=== PATIENT | female | born 1960 | race Caucasian/White ===

== ENCOUNTER 2020-06-30 11:41 | Outpatient (REF) | payer OTHER, SELFPAY ==
[2020-06-30 14:02] LABS: Hematocrit 39.2 % (37-47); Hemoglobin 12.7 g/dl (12.0-16.0); Mean Corpuscular HGB Conc 32.4 g/dl (31.0-35.0); Mean Corpuscular Hemoglobin 32.2 pg (27.0-33.0); Mean Corpuscular Volume 99.5 fL (80-98); Mean Platelet Volume 10.5 fL (9.4-12.3); Platelet Count 193 X10*3/uL (160-400); Red Blood Count 3.94 X10*6/uL (4.20-5.50); Red Cell Distribution Width 15.1 % (11.0-16.0); White Blood Count 13.4 X10*3/uL (4.8-10.8)
[2020-06-30 14:46] LABS: Alanine Aminotransferase 25 U/L (0-31); Albumin Level 4.1 g/dL (3.5-5.0); Alkaline Phosphatase 95 U/L (39-117); Anion Gap 14 (12-20); Aspartate Amino Transferase 47 U/L (5-31); Bilirubin Total 0.7 mg/dL (0.0-1.0); Blood Urea Nitrogen 14 mg/dL (9-16); Calcium 9.3 mg/dL (8.4-10.2); Carbon Dioxide 28 mmol/L (22-29); Chloride 101 mmol/L (96-108); Estimated Glomerular Filt Rate > 60; Glucose Random 90 mg/dL (60-115); Magnesium 1.4 mg/dL (1.6-2.6); Potassium 3.7 mmol/L (3.3-5.1); Sodium 139 mmol/L (135-145)
[2020-06-30 15:01] LABS: TSH reflex Free T4 2.99 uIU/mL (0.32-4.0)
[2020-06-30 15:09] LABS: Folate > 20.0 ng/mL (> or = 4.0); Vitamin B12 584 pg/mL (200-900)
== END 2020-06-30 11:42 | disposition home or self-care (01) ==
LOC: HO.HMGCLDS 11:41
PROVIDERS: PCP Internal Medicine; Visit Provider Internal Medicine
DX: Z01.818 Encounter for other preprocedural examination (principal); E03.9 Hypothyroidism, unspecified; E53.8 Deficiency of other specified B group vitamins
CPT/HCPCS: 36415; 80053; 82607; 82746; 83735; 84443; 85027

== ENCOUNTER 2020-10-07 10:50 | Outpatient (REF) | payer OTHER, SELFPAY ==
[2020-10-07 14:24] LABS: Hematocrit 36.7 % (37-47); Hemoglobin 11.8 g/dl (12.0-16.0); Mean Corpuscular HGB Conc 32.2 g/dl (31.0-35.0); Mean Corpuscular Hemoglobin 30.6 pg (27.0-33.0); Mean Corpuscular Volume 95.3 fL (80-98); Mean Platelet Volume 10.3 fL (9.4-12.3); Platelet Count 162 X10*3/uL (160-400); Red Blood Count 3.85 X10*6/uL (4.20-5.50); Red Cell Distribution Width 15.6 % (11.0-16.0); White Blood Count 8.1 X10*3/uL (4.8-10.8)
[2020-10-07 14:26] LABS: Glucose Urine UA NEG (NEG); Leukocyte Esterase Urine 1+ (NEG); Nitrite Urine NEG (NEG); Urine Blood NEG (NEG); Urine Ketones NEG (NEG); Urine Protein NEG (NEG-TRACE)
[2020-10-07 14:29] LABS: Appearance Urine HAZY; Color Urine YELLOW
[2020-10-07 14:41] LABS: Squamous Epithelial Cell Urine 3+ /LPF
[2020-10-07 15:12] LABS: Alanine Aminotransferase 41 U/L (0-31); Albumin Level 3.9 g/dL (3.5-5.0); Alkaline Phosphatase 72 U/L (39-117); Anion Gap 13 (12-20); Aspartate Amino Transferase 54 U/L (5-31); Bilirubin Total 0.5 mg/dL (0.0-1.0); Blood Urea Nitrogen 15 mg/dL (9-16); Carbon Dioxide 28 mmol/L (22-29); Chloride 102 mmol/L (96-108); Cholesterol 206 mg/dL; Estimated Glomerular Filt Rate > 60; Glucose Fasting 95 mg/dL (60-99); HDL Cholesterol 60 mg/dL; LDL Cholesterol Calculated 127 mg/dl; Magnesium 1.3 mg/dL (1.6-2.6); Sodium 139 mmol/L (135-145); Total Protein 7.3 g/dL (6.5-8.0); Triglycerides 99 mg/dL
[2020-10-07 15:22] LABS: TSH reflex Free T4 2.91 uIU/mL (0.32-4.0)
[2020-10-07 16:09] LABS: Folate 15.2 ng/mL (> or = 4.0); Vitamin B12 500 pg/mL (200-900)
== END 2020-10-07 10:51 | disposition home or self-care (01) ==
LOC: HO.HMGCLDS 10:50
PROVIDERS: PCP Internal Medicine; Visit Provider Internal Medicine
DX: Z00.00 Encounter for general adult medical examination without abnormal findings (principal); E03.9 Hypothyroidism, unspecified; E83.42 Hypomagnesemia; I49.8 Other specified cardiac arrhythmias
CPT/HCPCS: 36415; 80053; 80061; 81001; 82607; 82746; 83735; 84443; 85027; U0005

== ENCOUNTER 2020-10-20 15:00 | Outpatient (REF) | payer OTHER, SELFPAY ==
[2020-10-20 16:56] LABS: Glucose Urine UA NEG (NEG); Leukocyte Esterase Urine 1+ (NEG); Nitrite Urine NEG (NEG); Urine Blood 1+ (NEG); Urine Ketones NEG (NEG); Urine Protein NEG (NEG-TRACE)
[2020-10-20 17:19] LABS: Magnesium 1.9 mg/dL (1.6-2.6); Phosphorus 4.2 mg/dL (2.7-4.5)
[2020-10-20 17:20] LABS: Appearance Urine CLEAR; Color Urine YELLOW
[2020-10-20 18:10] LABS: Squamous Epithelial Cell Urine 3+ /LPF
== END 2020-10-20 15:01 | disposition home or self-care (01) ==
LOC: HO.HMGCLDS 15:00
PROVIDERS: PCP Internal Medicine; Visit Provider Internal Medicine
DX: E83.42 Hypomagnesemia (principal)
CPT/HCPCS: 36415; 81001; 83735; 84100

== ENCOUNTER 2021-03-15 14:46 | Outpatient (REF) | payer OTHER, SELFPAY ==
[2021-03-15 16:56] LABS: Anion Gap 14 (12-20); Blood Urea Nitrogen 15 mg/dL (9-16); Calcium 9.8 mg/dL (8.4-10.2); Carbon Dioxide 27 mmol/L (22-29); Chloride 101 mmol/L (96-108); Estimated Glomerular Filt Rate > 60; Glucose Random 107 mg/dL (60-115); Magnesium 1.8 mg/dL (1.6-2.6); Potassium 4.3 mmol/L (3.3-5.1); Sodium 138 mmol/L (135-145)
[2021-03-15 17:18] LABS: TSH reflex Free T4 4.07 uIU/mL (0.32-4.0)
[2021-03-15 17:52] LABS: Free T4 (Free Thyroxine) 0.92 ng/dL (0.71-1.85)
== END 2021-03-15 14:47 | disposition home or self-care (01) ==
LOC: HO.HMGCLDS 14:46
PROVIDERS: PCP Internal Medicine; Visit Provider Internal Medicine
DX: E83.42 Hypomagnesemia (principal); I10 Essential (primary) hypertension
CPT/HCPCS: 36415; 80048; 83735; 84439; 84443

== ENCOUNTER 2021-09-12 09:25 | Outpatient (REF) | payer OTHER, SELFPAY ==
[2021-09-12 11:54] LABS: Hematocrit 40.9 % (37.0-47.0); Hemoglobin 13.9 g/dl (12.0-16.0); Mean Corpuscular Hemoglobin 30.2 pg (27.0-33.0); Mean Corpuscular Volume 88.9 fL (80.0-98.0); Mean Platelet Volume 10.3 fL (9.4-12.3); NRBC Pct Auto 0.2 /100WBC (0.0-0.2); Platelet Count 133 X10*3/uL (160-400); Red Cell Distribution Width 20.5 % (11.0-16.0); White Blood Count 9.2 X10*3/uL (4.8-10.8)
[2021-09-12 12:05] LABS: Alanine Aminotransferase 33 U/L (0-31); Albumin Level 4.2 g/dL (3.5-5.0); Alkaline Phosphatase 104 U/L (39-117); Aspartate Amino Transferase 53 U/L (5-31); Bilirubin Total 1.8 mg/dL (0.0-1.0); Blood Urea Nitrogen 21 mg/dL (9-16); Calcium 10.7 mg/dL (8.4-10.2); Cholesterol 241 mg/dL; Estimated Glomerular Filt Rate 39; Glucose Fasting 119 mg/dL (60-99); HDL Cholesterol 103 mg/dL; LDL Cholesterol Calculated 115 mg/dl; Total Protein 8.4 g/dL (6.5-8.0); Triglycerides 117 mg/dL
[2021-09-12 12:27] LABS: TSH reflex Free T4 7.26 uIU/mL (0.32-4.0)
[2021-09-12 13:48] LABS: Anion Gap 20 (12-20); Carbon Dioxide 41 mmol/L (22-29); Chloride 79 mmol/L (96-108); Potassium 2.7 mmol/L (3.3-5.1); Sodium 137 mmol/L (135-145)
[2021-09-12 14:10] LABS: Free T4 (Free Thyroxine) 1.29 ng/dL (0.71-1.85)
[2021-09-12 15:57] LABS: Magnesium 0.8 mg/dL (1.6-2.6)
== END 2021-09-12 09:26 | disposition home or self-care (01) ==
LOC: HO.HMGCLDS 09:25
PROVIDERS: PCP Internal Medicine; Visit Provider Internal Medicine
DX: Z00.00 Encounter for general adult medical examination without abnormal findings (principal); I10 Essential (primary) hypertension; E03.9 Hypothyroidism, unspecified; E87.6 Hypokalemia; E83.42 Hypomagnesemia
CPT/HCPCS: 36415; 80053; 80061; 83735; 84439; 84443; 85027

== ENCOUNTER 2021-09-15 07:57 | Outpatient (REF) | payer OTHER, SELFPAY ==
[2021-09-15 12:11] LABS: Anion Gap 10 (12-20); Blood Urea Nitrogen 11 mg/dL (9-16); Calcium 8.4 mg/dL (8.4-10.2); Carbon Dioxide 32 mmol/L (22-29); Chloride 99 mmol/L (96-108); Estimated Glomerular Filt Rate > 60; Glucose Random 104 mg/dL (60-115); Magnesium 1.5 mg/dL (1.6-2.6); Potassium 3.4 mmol/L (3.3-5.1); Sodium 138 mmol/L (135-145)
== END 2021-09-15 07:58 | disposition home or self-care (01) ==
LOC: HO.HMGCLDS 07:57
PROVIDERS: PCP Internal Medicine; Visit Provider Internal Medicine
DX: E83.42 Hypomagnesemia (principal); E87.6 Hypokalemia
CPT/HCPCS: 36415; 80048; 83735

== ENCOUNTER 2021-10-03 08:06 | Outpatient (REF) | payer OTHER, SELFPAY ==
[2021-10-03 12:10] LABS: Anion Gap 10 (12-20); Blood Urea Nitrogen 12 mg/dL (9-16); Calcium 9.5 mg/dL (8.4-10.2); Carbon Dioxide 26 mmol/L (22-29); Chloride 106 mmol/L (96-108); Estimated Glomerular Filt Rate > 60; Glucose Random 111 mg/dL (60-115); Magnesium 1.7 mg/dL (1.6-2.6); Potassium 4.1 mmol/L (3.3-5.1); Sodium 138 mmol/L (135-145)
== END 2021-10-03 08:07 | disposition home or self-care (01) ==
LOC: HO.HMGCLDS 08:06
PROVIDERS: PCP Internal Medicine; Visit Provider Internal Medicine
DX: E83.42 Hypomagnesemia (principal); E87.6 Hypokalemia
CPT/HCPCS: 36415; 80048; 83735

== ENCOUNTER 2021-12-07 07:52 | Outpatient (REF) | payer OTHER, SELFPAY ==
[2021-12-07 11:51] LABS: Anion Gap 12 (12-20); Blood Urea Nitrogen 10 mg/dL (9-16); Calcium 9.3 mg/dL (8.4-10.2); Carbon Dioxide 27 mmol/L (22-29); Chloride 101 mmol/L (96-108); Estimated Glomerular Filt Rate > 60; Glucose Random 108 mg/dL (60-115); Magnesium 1.8 mg/dL (1.6-2.6); Potassium 4.4 mmol/L (3.3-5.1); Sodium 136 mmol/L (135-145)
== END 2021-12-07 07:53 | disposition home or self-care (01) ==
LOC: HO.HMGCLDS 07:52
PROVIDERS: Visit Provider Internal Medicine
DX: R60.9 Edema, unspecified (principal)
CPT/HCPCS: 36415; 80048; 83735

== ENCOUNTER 2021-12-28 06:51 | Outpatient (REF) | payer OTHER, SELFPAY ==
[2021-12-28 12:31] LABS: TSH reflex Free T4 5.27 uIU/mL (0.32-4.0)
[2021-12-28 13:38] LABS: Alanine Aminotransferase 39 U/L (0-31); Albumin Level 3.7 g/dL (3.5-5.0); Alkaline Phosphatase 72 U/L (39-117); Anion Gap 16 (12-20); Aspartate Amino Transferase 31 U/L (5-31); Bilirubin Total 0.5 mg/dL (0.0-1.0); Blood Urea Nitrogen 26 mg/dL (9-16); Calcium 8.9 mg/dL (8.4-10.2); Carbon Dioxide 28 mmol/L (22-29); Chloride 95 mmol/L (96-108); Cholesterol 156 mg/dL; Estimated Glomerular Filt Rate > 60; Glucose Fasting 111 mg/dL (60-99); HDL Cholesterol 58 mg/dL; LDL Cholesterol Calculated 77 mg/dl; Potassium 4.3 mmol/L (3.3-5.1); Sodium 135 mmol/L (135-145); Total Protein 7.4 g/dL (6.5-8.0); Triglycerides 106 mg/dL
[2021-12-28 13:43] LABS: Magnesium 1.3 mg/dL (1.6-2.6)
[2021-12-28 14:16] LABS: Folate 12.2 ng/mL (> or = 4.0); Vitamin B12 598 pg/mL (200-900)
[2021-12-28 14:29] LABS: Free T4 (Free Thyroxine) 1.11 ng/dL (0.71-1.85)
== END 2021-12-28 06:52 | disposition home or self-care (01) ==
LOC: HO.HMGCLDS 06:51
PROVIDERS: PCP Internal Medicine; Visit Provider Internal Medicine
DX: R60.9 Edema, unspecified (principal); E83.42 Hypomagnesemia; E53.8 Deficiency of other specified B group vitamins; E03.9 Hypothyroidism, unspecified; E87.6 Hypokalemia
CPT/HCPCS: 36415; 80053; 80061; 82607; 82746; 83735; 84439; 84443

== ENCOUNTER 2022-01-04 07:25 | Outpatient (REF) | payer OTHER, SELFPAY ==
[2022-01-04 12:10] LABS: Magnesium 1.7 mg/dL (1.6-2.6)
== END 2022-01-04 07:26 | disposition home or self-care (01) ==
LOC: HO.HMGCLDS 07:25
PROVIDERS: PCP Internal Medicine; Visit Provider Internal Medicine
DX: E83.42 Hypomagnesemia (principal)
CPT/HCPCS: 36415; 83735

== ENCOUNTER 2022-07-02 08:50 | Outpatient (REF) | payer OTHER, SELFPAY ==
[2022-07-02 11:28] LABS: MANUAL DIFF FLAG NO
[2022-07-02 11:45] LABS: Basophils Absolute Auto 0.1 X10*3/uL (0.0-0.2); Basophils Percent Auto 1.4 % (0-2); Eosinophils Absolute Auto 0.2 X10*3/uL (0.0-0.4); Eosinophils Percent Auto 2.4 % (0-4); Hematocrit 27.1 % (37.0-47.0); Hemoglobin 7.6 g/dl (12.0-16.0); Imm Gran Abs Auto 0.05 X10*3/uL (0.00-0.03); Imm Gran Pct Auto 0.5 % (0.0-0.4); Lymphocytes Absolute Auto 2.3 X10*3/uL (1.2-4.9); Mean Corpuscular Hemoglobin 21.7 pg (27.0-33.0); Mean Corpuscular Volume 77.4 fL (80.0-98.0); Mean Platelet Volume 8.7 fL (9.4-12.3); Monocytes Absolute Auto 1.2 X10*3/uL (0.1-1.2); Monocytes Percent Auto 11.7 % (2-11); Neutrophils Absolute Auto 6.1 x10*3/uL (2.0-8.3); Platelet Count 362 X10*3/uL (160-400); Red Cell Distribution Width 27.4 % (11.0-16.0)
[2022-07-02 12:26] LABS: Alanine Aminotransferase 20 U/L (0-31); Albumin Level 3.5 g/dL (3.5-5.0); Alkaline Phosphatase 71 U/L (39-117); Anion Gap 12 (12-20); Aspartate Amino Transferase 18 U/L (5-31); Bilirubin Total 0.3 mg/dL (0.0-1.0); Blood Urea Nitrogen 15 mg/dL (9-16); Calcium 8.4 mg/dL (8.4-10.2); Carbon Dioxide 23 mmol/L (22-29); Chloride 111 mmol/L (96-108); Cholesterol 149 mg/dL; Estimated Glomerular Filt Rate > 60; Glucose Fasting 94 mg/dL (60-99); HDL Cholesterol 54 mg/dL; LDL Cholesterol Calculated 78 mg/dl; Magnesium 1.7 mg/dL (1.6-2.6); Potassium 5.1 mmol/L (3.3-5.1); Sodium 141 mmol/L (135-145); Total Protein 6.7 g/dL (6.5-8.0); Triglycerides 89 mg/dL
[2022-07-02 12:43] LABS: Folate 10.3 ng/mL (> or = 4.0); TSH reflex Free T4 2.01 uIU/mL (0.32-4.0); Vitamin B12 306 pg/mL (200-900)
== END 2022-07-02 08:51 | disposition home or self-care (01) ==
LOC: HO.HMGCLDS 08:50
PROVIDERS: PCP Internal Medicine; Visit Provider Internal Medicine
DX: E03.9 Hypothyroidism, unspecified (principal); E83.42 Hypomagnesemia; E53.8 Deficiency of other specified B group vitamins; I10 Essential (primary) hypertension
CPT/HCPCS: 36415; 80053; 80061; 82607; 82746; 83735; 84443; 85025

== ENCOUNTER 2022-07-04 10:27 | Outpatient (REF) | payer OTHER, SELFPAY ==
--- NOTE | ~2022-07-04 | XR_ITS ---
EXAMINATION: XR LUMBOSACRAL SPINE CLINICAL INFORMATION: M47.816 - Spondylosis without myelopathy or radiculopathy, lumbar region COMPARISON: None TECHNIQUE: Three views of the lumbosacral spine. FINDINGS: There is normal lumbar segmentation with 5 nonrib-bearing lumbar vertebrae of normal height and normal lumbar lordosis. There is a mild gentle dextrocurvature. There is no lumbar vertebral compression, spondylolisthesis, destructive process. Degenerative disc changes are present lower thoracic spine, T12-L1 and there is also mild disc narrowing L5-S1. No erosive change. The SI joints and visualized sacrum are unremarkable. XR/XR lumbar spine 2-3V IMPRESSION: -Mild dextrocurvature. No vertebral compression or spondylolisthesis. -Degenerative disc changes T12-L1 and L5-S1.
[2022-07-04 12:15] LABS: Iron 15 mcg/dL (30-160); Magnesium 1.7 mg/dL (1.6-2.6); Percent Iron Saturation 4 % (15-50); Total Iron Binding Capacity 423 mcg/dL (228-428); Unsaturated Iron Binding 408 ug/dL
== END 2022-07-04 10:28 | disposition home or self-care (01) ==
LOC: HO.HMGCLDS 10:27
PROVIDERS: PCP Internal Medicine; Visit Provider Internal Medicine
DX: M47.816 Spondylosis without myelopathy or radiculopathy, lumbar region (principal); D64.9 Anemia, unspecified; E83.42 Hypomagnesemia
CPT/HCPCS: 36415; 72100; 83540; 83735

== ENCOUNTER 2022-08-28 07:47 | Outpatient (REF) | payer OTHER, SELFPAY ==
[2022-08-28 11:36] LABS: MANUAL DIFF FLAG NO
[2022-08-28 11:48] LABS: Basophils Absolute Auto 0.1 X10*3/uL (0.0-0.2); Basophils Percent Auto 0.9 % (0-2); Eosinophils Absolute Auto 0.3 X10*3/uL (0.0-0.4); Eosinophils Percent Auto 2.9 % (0-4); Hematocrit 39.8 % (37.0-47.0); Hemoglobin 11.8 g/dl (12.0-16.0); Imm Gran Abs Auto 0.02 X10*3/uL (0.00-0.03); Imm Gran Pct Auto 0.2 % (0.0-0.4); Lymphocytes Absolute Auto 2.6 X10*3/uL (1.2-4.9); Lymphocytes Percent Auto 27.3 % (20-40); Mean Corpuscular HGB Conc 29.6 g/dl (31.0-35.0); Mean Corpuscular Hemoglobin 26.2 pg (27.0-33.0); Mean Corpuscular Volume 88.2 fL (80.0-98.0); Mean Platelet Volume 9.4 fL (9.4-12.3); Monocytes Absolute Auto 0.6 X10*3/uL (0.1-1.2); Monocytes Percent Auto 6.1 % (2-11); Neutrophils Absolute Auto 5.9 x10*3/uL (2.0-8.3); Neutrophils Percent Auto 62.6 % (45-73); Platelet Count 384 X10*3/uL (160-400); Red Blood Count 4.51 X10*6/uL (4.20-5.50); Red Cell Distribution Width 24.1 % (11.0-16.0); White Blood Count 9.3 X10*3/uL (4.8-10.8)
[2022-08-28 12:19] LABS: Iron 30 mcg/dL (30-160); Percent Iron Saturation 9 % (15-50); Total Iron Binding Capacity 322 mcg/dL (228-428); Unsaturated Iron Binding 292 ug/dL
== END 2022-08-28 07:48 | disposition home or self-care (01) ==
LOC: HO.HMGCLDS 07:47
PROVIDERS: PCP Internal Medicine; Visit Provider Internal Medicine
DX: D64.9 Anemia, unspecified (principal)
CPT/HCPCS: 36415; 83540; 85025

== ENCOUNTER 2022-11-12 08:12 | Outpatient (REF) | payer OTHER, SELFPAY ==
[2022-11-12 11:31] LABS: MANUAL DIFF FLAG NO
[2022-11-12 11:47] LABS: Basophils Absolute Auto 0.1 X10*3/uL (0.0-0.2); Basophils Percent Auto 0.8 % (0-2); Eosinophils Absolute Auto 0.5 X10*3/uL (0.0-0.4); Eosinophils Percent Auto 4.7 % (0-4); Hematocrit 36.6 % (37.0-47.0); Hemoglobin 11.6 g/dl (12.0-16.0); Imm Gran Abs Auto 0.05 X10*3/uL (0.00-0.03); Imm Gran Pct Auto 0.5 % (0.0-0.4); Lymphocytes Absolute Auto 2.6 X10*3/uL (1.2-4.9); Lymphocytes Percent Auto 25.1 % (20-40); Mean Corpuscular HGB Conc 31.7 g/dl (31.0-35.0); Mean Corpuscular Hemoglobin 30.3 pg (27.0-33.0); Mean Corpuscular Volume 95.6 fL (80.0-98.0); Mean Platelet Volume 9.5 fL (9.4-12.3); Monocytes Absolute Auto 0.8 X10*3/uL (0.1-1.2); Monocytes Percent Auto 7.5 % (2-11); Neutrophils Absolute Auto 6.2 x10*3/uL (2.0-8.3); Neutrophils Percent Auto 61.4 % (45-73); Platelet Count 210 X10*3/uL (160-400); Red Blood Count 3.83 X10*6/uL (4.20-5.50); Red Cell Distribution Width 18.6 % (11.0-16.0); White Blood Count 10.1 X10*3/uL (4.8-10.8)
[2022-11-12 13:29] LABS: Alanine Aminotransferase 16 U/L (0-31); Albumin Level 3.7 g/dL (3.5-5.0); Alkaline Phosphatase 69 U/L (39-117); Anion Gap 14 (12-20); Aspartate Amino Transferase 29 U/L (5-31); Bilirubin Total 0.7 mg/dL (0.0-1.0); Blood Urea Nitrogen 15 mg/dL (9-16); Calcium 8.9 mg/dL (8.4-10.2); Carbon Dioxide 26 mmol/L (22-29); Chloride 103 mmol/L (96-108); Estimated Glomerular Filt Rate > 60; Glucose Fasting 106 mg/dL (60-99); Iron 28 mcg/dL (30-160); Magnesium 1.3 mg/dL (1.6-2.6); Percent Iron Saturation 8 % (15-50); Potassium 3.5 mmol/L (3.3-5.1); Sodium 139 mmol/L (135-145); Total Iron Binding Capacity 336 mcg/dL (228-428); Total Protein 7.6 g/dL (6.5-8.0); Unsaturated Iron Binding 308 ug/dL
== END 2022-11-12 08:13 | disposition home or self-care (01) ==
LOC: HO.HMGCLDS 08:12
PROVIDERS: PCP Internal Medicine; Visit Provider Internal Medicine
DX: D64.9 Anemia, unspecified (principal); E83.42 Hypomagnesemia; E87.6 Hypokalemia
CPT/HCPCS: 36415; 80053; 83540; 83735; 85025

== ENCOUNTER 2022-11-19 07:30 | Outpatient (REF) | payer OTHER, SELFPAY | END 2022-11-19 07:31 | disposition home or self-care (01) | LOC: HO.HMGCLDS 07:30 | PROVIDERS: PCP Internal Medicine; Visit Provider Nurse Practitioner Family | DX: E83.42 Hypomagnesemia (principal) | CPT/HCPCS: 36415; 83735 ==

== ENCOUNTER 2023-01-02 08:42 | Outpatient (REF) | payer OTHER, SELFPAY ==
[2023-01-02 11:19] LABS: MANUAL DIFF FLAG NO
[2023-01-02 11:31] LABS: Basophils Absolute Auto 0.1 X10*3/uL (0.0-0.2); Basophils Percent Auto 1.1 % (0-2); Eosinophils Absolute Auto 0.3 X10*3/uL (0.0-0.4); Eosinophils Percent Auto 2.6 % (0-4); Hematocrit 37.7 % (37.0-47.0); Hemoglobin 11.7 g/dl (12.0-16.0); Imm Gran Abs Auto 0.02 X10*3/uL (0.00-0.03); Imm Gran Pct Auto 0.2 % (0.0-0.4); Lymphocytes Absolute Auto 2.8 X10*3/uL (1.2-4.9); Lymphocytes Percent Auto 29.5 % (20-40); Mean Corpuscular Hemoglobin 29.6 pg (27.0-33.0); Mean Corpuscular Volume 95.4 fL (80.0-98.0); Mean Platelet Volume 9.1 fL (9.4-12.3); Monocytes Absolute Auto 0.7 X10*3/uL (0.1-1.2); Monocytes Percent Auto 7.1 % (2-11); Neutrophils Absolute Auto 5.7 x10*3/uL (2.0-8.3); Neutrophils Percent Auto 59.5 % (45-73); Platelet Count 395 X10*3/uL (160-400); Red Blood Count 3.95 X10*6/uL (4.20-5.50); Red Cell Distribution Width 15.1 % (11.0-16.0); White Blood Count 9.5 X10*3/uL (4.8-10.8)
[2023-01-02 11:38] LABS: Estimated Average Glucose 103 mg/dL; Hemoglobin A1c % 5.2 %
[2023-01-02 12:02] LABS: Alanine Aminotransferase 14 U/L (0-31); Albumin Level 3.7 g/dL (3.5-5.0); Alkaline Phosphatase 76 U/L (39-117); Anion Gap 11 (12-20); Aspartate Amino Transferase 19 U/L (5-31); Bilirubin Total 0.4 mg/dL (0.0-1.0); Blood Urea Nitrogen 11 mg/dL (9-16); Calcium 9.5 mg/dL (8.4-10.2); Carbon Dioxide 27 mmol/L (22-29); Chloride 106 mmol/L (96-108); Cholesterol 189 mg/dL; Estimated Glomerular Filt Rate > 60; Glucose Fasting 103 mg/dL (60-99); HDL Cholesterol 53 mg/dL; LDL Cholesterol Calculated 109 mg/dl; Magnesium 2.1 mg/dL (1.6-2.6); Potassium 4.8 mmol/L (3.3-5.1); Sodium 139 mmol/L (135-145); Total Protein 7.6 g/dL (6.5-8.0); Triglycerides 137 mg/dL
[2023-01-02 12:28] LABS: TSH reflex Free T4 3.03 uIU/mL (0.32-4.0)
== END 2023-01-02 08:43 | disposition home or self-care (01) ==
LOC: HO.HMGCLDS 08:42
PROVIDERS: PCP Internal Medicine; Visit Provider Internal Medicine
DX: D64.9 Anemia, unspecified (principal); I10 Essential (primary) hypertension; E87.6 Hypokalemia; E83.42 Hypomagnesemia
CPT/HCPCS: 36415; 80053; 80061; 82306; 83036; 83735; 84443; 85025

== ENCOUNTER 2023-01-04 11:29 | Outpatient (AMB) | payer OTHER, SELFPAY ==
--- NOTE | 2023-01-04 11:48 | MHC.PC.OV ---
Vital Signs 01/04/23 11:50 Height 5 ft 2 in Weight 221 lb BMI 40.4 BP 106/66 Blood Pressure Location Lt brachial Position Sitting Pulse 111 H Pulse Source Pulse Oximeter Pulse Oximetry (%) 98 Oxygen Delivery Method Room Air Intake Visit Reasons: Annual PE Intake Note: Pt is here today for PE. Pt states that she pulse has been running high. Allergies sertraline Allergy (Unknown, Verified 01/04/23 11:51) Itching Medication List - Last Reconciled 01/04/23 by Latonia Glaser MD cholecalciferol (vitamin D3) 50 mcg PO DAILY diltiazem HCl 180 mg PO DAILY ferrous sulfate 325 mg PO DAILY levothyroxine 50 mcg PO DAILY magnesium oxide 400 mg PO DAILY potassium chloride ER 20 mEq PO DAILY vit B complex 100 combo no.2 ER (Balanced B-100 Complex) 1 tab PO .QD Tobacco use date assessed: 01/04/23 Dental Screening Dental Screen Date: 01/04/23 Did you have a dental visit in the last 12 months?: Yes Did you have a dental problem in the last 6 months where you did not have access to dental care?: No Was dental information given to patient?: Patient has dentist HPI Annual PE HPI Details Patient presents for physical PFSH Medical History Annual physical exam Anxiety and depression DJD (degenerative joint disease) DJD (degenerative joint disease), lumbar Elevated LFTs ETOH abuse HTN (hypertension) Hypokalemia Hypomagnesemia Hypothyroidism Lower back pain Normal Pap smear Perimenopausal Pre-op exam Sinus arrhythmia Sleep apnea Tendinopathy Vitamin B 12 deficiency Surgical History H/O colonoscopy No pertinent past surgical history No pertinent past surgical history Family History Father No problems noted. Mother No problems noted. Father No problems noted. Mother No problems noted. Social History Housing: House Alcohol intake: current Alcohol intake frequency: a few times a month Patient Tobacco Use Status: Never used Tobacco e-Cigarette/Vaping Use: Never Used Current occupational status: unemployed Cognitive needs: No Hearing needs: No Vision needs: Yes Questionnaire Thrive Questionnaire Date Thrive assessed: 07/04/22 AUDIT C Alcohol Use Questionnaire (AUDIT-C) 1. How often do you have a drink containing alcohol?: Never 3. How often do you have six or more drinks on one occasion?: Never Total Score: 0 NOA-7 AMB Questionnaire NOA-7 Date NOA - 7 assessed: 07/04/22 Source: Developed by Drs. Leoncio Llamas, Candy Vargas, Rk Metcalf and colleagues, with an educational kwasi from [employer]. Review of Systems Const All systems reviewed & are unremarkable except as noted in HPI and below Reports no additional complaints Eyes Reports no additional complaints ENT Reports no additional complaints Card Reports no additional complaints Resp Reports no additional complaints GI Reports no additional complaints Reports no additional complaints Physical exam (Primary Care) Vital Signs: Last Vital Signs Pulse 111 H 01/04/23 11:50 BP 106/66 01/04/23 11:50 Pulse Ox 98 01/04/23 11:50 Oxygen Delivery Method Room Air 01/04/23 11:50 BMI result Body Mass Index 40.4 Tobacco/Smoking Status: Tobacco use Status Tobacco use date assessed 01/04/23 01/04/23 11:57 Patient Tobacco Use Status Never used Tobacco 01/04/23 11:57 e-Cigarette/Vaping Use Never Used 01/04/23 11:50 Thrive Assessment: Date of Thrive Assessment Date Thrive assessed 07/04/22 01/04/23 11:50 Const General: no acute distress HENMT Ears: hearing grossly normal bilaterally Face and sinus: Yes normal facial exam Neck Neck: Yes no lymphadenopathy and Yes supple Resp Effort & Inspection: normal respiratory effort Auscultation: clear to auscultation bilaterally Cardio Rate: tachycardic Rhythm: regular rhythm Heart sounds: S1 normal heart sound present and S2 normal heart sound present GI Inspection: Yes normal to inspection Palpation (GI): Soft to palpation Percussion: Yes normal to percussion Auscultation: normal bowel sounds Assessment and Plan Assessment & Plan (1) Hypomagnesemia: Code(s): E83.42 - Hypomagnesemia Plan: Continue magnesium supplement check magnesium level (2) HTN (hypertension): Code(s): I10 - Essential (primary) hypertension Plan: Continue current medications (3) Hypokalemia: Code(s): E87.6 - Hypokalemia Plan: Check potassium (4) Sleep apnea: Comment: On CPAP Code(s): G47.30 - Sleep apnea, unspecified (5) Tachycardia: Comment: Controlled on Cardizem, follow-up with Cardiology Code(s): R00.0 - Tachycardia, unspecified Orders: Orders Magnesium 1 Month E83.42 - Hypomagnesemia, E87.6 - Hypokalemia, I10 - Essential (primary) hypertension Basic Metabolic Panel 1 Month E83.42 - Hypomagnesemia, E87.6 - Hypokalemia, I10 - Essential (primary) hypertension Comprehensive [place]. Panel Fast 6 Months E03.9 - Hypothyroidism, unspecified, E53.8 - Deficiency of other specified B group vitamins, E83.42 - Hypomagnesemia, E87.6 - Hypokalemia, I10 - Essential (primary) hypertension TSH reflex Free T4 6 Months E03.9 - Hypothyroidism, unspecified, E53.8 - Deficiency of other specified B group vitamins, E83.42 - Hypomagnesemia, E87.6 - Hypokalemia, I10 - Essential (primary) hypertension Complete Blood Count Auto Diff 6 Months E03.9 - Hypothyroidism, unspecified, E53.8 - Deficiency of other specified B group vitamins, E83.42 - Hypomagnesemia, E87.6 - Hypokalemia, I10 - Essential (primary) hypertension Hemoglobin A1c 6 Months E03.9 - Hypothyroidism, unspecified, E53.8 - Deficiency of other specified B group vitamins, E83.42 - Hypomagnesemia, E87.6 - Hypokalemia, I10 - Essential (primary) hypertension IRON PROFILE 6 Months E03.9 - Hypothyroidism, unspecified, E53.8 - Deficiency of other specified B group vitamins, E83.42 - Hypomagnesemia, E87.6 - Hypokalemia, I10 - Essential (primary) hypertension Magnesium 6 Months E83.42 - Hypomagnesemia Medications: New estradiol 10 mcg vaginal 2XW 30 tabs 3RF Refilled cholecalciferol (vitamin D3) 50 mcg PO DAILY 90 caps 3RF vit B complex 100 combo no.2 ER (Balanced B-100 Complex) 1 tab PO .QD 90 tabs 3RF levothyroxine 50 mcg PO DAILY 90 caps 3RF Coding Level of Care Code Est Pt Prev Care 40-64y(82788) Diagnoses Hypomagnesemia E83.42 HTN (hypertension) I10 Hypokalemia E87.6 Sleep apnea G47.30 Tachycardia R00.0
[2023-01-04 11:50] VITALS: BP 106/66; PULSE 111; O2SAT 98; BMI 40.4
== END 2023-01-04 15:24 | disposition home or self-care (01) ==
PROVIDERS: Visit Provider Internal Medicine
DX: Z00.00 Encounter for general adult medical examination without abnormal findings (principal); E83.42 Hypomagnesemia; I10 Essential (primary) hypertension; E87.6 Hypokalemia; G47.30 Sleep apnea, unspecified; R00.0 Tachycardia, unspecified
CPT/HCPCS: 99396

== ENCOUNTER 2023-02-21 09:17 | Outpatient (REF) | payer OTHER, SELFPAY | END 2023-02-21 09:18 | disposition home or self-care (01) | LOC: HO.HMGCLDS 09:17 | PROVIDERS: PCP Internal Medicine; Visit Provider Internal Medicine | DX: E83.42 Hypomagnesemia (principal); I10 Essential (primary) hypertension; E87.6 Hypokalemia | CPT/HCPCS: 36415; 80048; 83735 ==

== ENCOUNTER 2023-02-28 07:42 | Outpatient (REF) | payer OTHER, SELFPAY ==
[2023-02-28 12:10] LABS: Magnesium 1.9 mg/dL (1.6-2.6); Potassium 4.2 mmol/L (3.3-5.1)
== END 2023-02-28 07:43 | disposition home or self-care (01) ==
LOC: HO.HMGCLDS 07:42
PROVIDERS: PCP Internal Medicine; Visit Provider Internal Medicine
DX: E87.6 Hypokalemia (principal); E83.42 Hypomagnesemia
CPT/HCPCS: 36415; 83735; 84132

== ENCOUNTER 2023-06-14 08:16 | Outpatient (REF) | payer OTHER, SELFPAY ==
[2023-06-14 11:34] LABS: MANUAL DIFF FLAG NO
[2023-06-14 12:01] LABS: Basophils Absolute Auto 0.1 X10*3/uL (0.0-0.2); Basophils Percent Auto 0.8 % (0-2); Eosinophils Absolute Auto 0.4 X10*3/uL (0.0-0.4); Hematocrit 42.3 % (37.0-47.0); Hemoglobin 13.5 g/dl (12.0-16.0); Imm Gran Abs Auto 0.04 X10*3/uL (0.00-0.03); Imm Gran Pct Auto 0.4 % (0.0-0.4); Lymphocytes Absolute Auto 2.7 X10*3/uL (1.2-4.9); Lymphocytes Percent Auto 26.2 % (20-40); Mean Corpuscular HGB Conc 31.9 g/dl (31.0-35.0); Mean Corpuscular Hemoglobin 30.1 pg (27.0-33.0); Mean Corpuscular Volume 94.2 fL (80.0-98.0); Mean Platelet Volume 9.5 fL (9.4-12.3); Monocytes Absolute Auto 0.8 X10*3/uL (0.1-1.2); Monocytes Percent Auto 7.7 % (2-11); Neutrophils Absolute Auto 6.3 x10*3/uL (2.0-8.3); Neutrophils Percent Auto 60.9 % (45-73); Platelet Count 356 X10*3/uL (160-400); Red Blood Count 4.49 X10*6/uL (4.20-5.50); Red Cell Distribution Width 13.9 % (11.0-16.0); White Blood Count 10.3 X10*3/uL (4.8-10.8)
[2023-06-14 12:17] LABS: Estimated Average Glucose 103 mg/dL; Hemoglobin A1c % 5.2 % (<6.0)
[2023-06-14 12:22] LABS: Alanine Aminotransferase 11 U/L (0-31); Albumin Level 3.9 g/dL (3.5-5.0); Alkaline Phosphatase 69 U/L (39-117); Anion Gap 14 (12-20); Aspartate Amino Transferase 14 U/L (5-31); Bilirubin Total 0.3 mg/dL (0.0-1.0); Blood Urea Nitrogen 14 mg/dL (9-16); Calcium 9.8 mg/dL (8.4-10.2); Carbon Dioxide 29 mmol/L (22-29); Chloride 102 mmol/L (96-108); Estimated Glomerular Filt Rate > 60; Glucose Fasting 100 mg/dL (60-99); Iron 52 mcg/dL (30-160); Magnesium 1.8 mg/dL (1.6-2.6); Percent Iron Saturation 17 % (15-50); Potassium 4.6 mmol/L (3.3-5.1); Sodium 140 mmol/L (135-145); Total Iron Binding Capacity 300 mcg/dL (228-428); Total Protein 7.9 g/dL (6.5-8.0); Unsaturated Iron Binding 248 ug/dL
[2023-06-14 12:43] LABS: TSH reflex Free T4 2.82 uIU/mL (0.32-4.0)
== END 2023-06-14 08:17 | disposition home or self-care (01) ==
LOC: HO.HMGCLDS 08:16
PROVIDERS: PCP Internal Medicine; Visit Provider Internal Medicine
DX: E87.6 Hypokalemia (principal); I10 Essential (primary) hypertension; E83.42 Hypomagnesemia; E53.8 Deficiency of other specified B group vitamins; E03.9 Hypothyroidism, unspecified
CPT/HCPCS: 36415; 80053; 83036; 83540; 83735; 84443; 85025

== ENCOUNTER 2023-06-27 09:32 | Outpatient (AMB) | payer OTHER, SELFPAY ==
[2023-06-27 09:33] VITALS: BP 134/80; PULSE 71; O2SAT 97; BMI 39.0
--- NOTE | 2023-06-27 09:33 | MHC.PC.OV ---
Vital Signs 06/27/23 09:33 Height 5 ft 2 in Weight 213 lb BMI 39.0 BP 134/80 Blood Pressure Location Lt brachial Position Sitting Pulse 71 Pulse Source Pulse Oximeter Pulse Oximetry (%) 97 Oxygen Delivery Method Room Air Intake Visit Reasons: Pre op cataract surgery Intake Note: Pt is here today for a pre op visit. Allergies sertraline Allergy (Unknown, Verified 06/27/23 09:35) Itching Medication List - Last Reconciled 06/27/23 by Latonia Glaser MD cholecalciferol (vitamin D3) 50 mcg PO DAILY diltiazem HCl 180 mg PO DAILY estradiol 10 mcg vaginal 2XW ferrous sulfate 325 mg PO DAILY levothyroxine 50 mcg PO DAILY magnesium oxide 400 mg PO DAILY potassium chloride ER 20 mEq PO DAILY vit B complex 100 combo no.2 ER (Balanced B-100 Complex) 1 tab PO .QD Tobacco use date assessed: 06/27/23 Dental Screening Dental Screen Date: 06/27/23 Did you have a dental visit in the last 12 months?: Yes Did you have a dental problem in the last 6 months where you did not have access to dental care?: No Was dental information given to patient?: Patient has dentist HPI Pre op cataract surgery HPI Details Pt presents for preop for cataract surgery. Hypertension and hypothyroidism are controlled on current medications. [facility] Medical History (Updated 06/27/23 @ 09:59 by Latonia Glaser MD) Hypokalemia ETOH abuse DJD (degenerative joint disease), lumbar Sleep apnea HTN (hypertension) Normal Pap smear Annual physical exam Hypomagnesemia Sinus arrhythmia Vitamin B 12 deficiency Pre-op exam Lower back pain Hypothyroidism DJD (degenerative joint disease) Tendinopathy Elevated LFTs Anxiety and depression Perimenopausal Surgical History No pertinent past surgical history H/O colonoscopy No pertinent past surgical history Family History Father No problems noted. Mother No problems noted. Father No problems noted. Mother No problems noted. Social History Housing: House Alcohol intake: current Alcohol intake frequency: a few times a month Patient Tobacco Use Status: Never used Tobacco e-Cigarette/Vaping Use: Never Used Current occupational status: unemployed Cognitive needs: No Hearing needs: No Vision needs: Yes Questionnaire PHQ-9 Over the last 2 weeks, how often have you been bothered by any of the following problems? 1. Little interest or pleasure in doing things: not at all 2. Feeling down, depressed, or hopeless: not at all 3. Trouble falling or staying asleep, or sleeping too much: not at all 4. Feeling tired or having little energy: not at all 5. Poor appetite or overeating: not at all 6. Feeling bad about yourself - or that you are a failure or have let yourself or your family down: not at all 7. Trouble concentrating on things, such as reading the newspaper or watching television: not at all 8. Moving or speaking so slowly that other people could have noticed. Or the opposite - being so fidgety or restless that you have been moving around a lot more than usual: not at all 9. Thoughts that you would be better off or of hurting yourself in some way: not at all Total score: 0 Depression Screening Interpretation: Negative Depression Screening Done: Yes Source: Developed by Drs. Leoncio Llamas, Candy Vargas, Rk Metcalf and colleagues, with an educational kwasi from [employer]. Thrive Questionnaire Date Thrive assessed: 06/27/23 I am a: Patient What is your living situation today?: I have a steady place to live Within the past 12 months, did the food you bought not last and you didn't have the money to get more?: Never true Within the past 12 months, did you worry whether your food would run out before you got money to buy more?: Never true Do you have trouble paying for medicines?: No Do you have trouble getting transportation to medical appointments?: No Do you have trouble paying your heating and electricity bill?: No Do you have trouble taking care of your child, family member or friend?: No Do you have trouble with day-to-day activities such as bathing, preparing meals, shopping, managing finances, etc.?: No Are you currently unemployed and looking for a job?: No Are you interested in more education?: No Please select the resources that you would like help with: None Currently or been in a relationship where the following occur: no concerns reported THRIVE Score: 0 NOA-7 AMB Questionnaire NOA-7 Date NOA - 7 assessed: 06/27/23 Feeling nervous, anxious, or on edge: 0 = Not at all Not being able to stop or control worryin = Not at all Worrying too much about different things: 0 = Not at all Trouble relaxin = Not at all Being so restless that it is hard to sit still: 0 = Not at all Becoming easily annoyed or irritable: 0 = Not at all Feeling afraid as if something awful might happen: 0 = Not at all Total NOA-7 score (0-4 normal; 5-9 mild; 10-14 moderate; 15-21 severe): 0 Source: Developed by Drs. Leoncio Llamas, Candy Vargas, Rk Metcalf and colleagues, with an educational kwasi from [employer]. Review of Systems Const All systems reviewed & are unremarkable except as noted in HPI and below Reports no additional complaints Eyes Reports no additional complaints ENT Reports no additional complaints Card Reports no additional complaints Resp Reports no additional complaints GI Reports no additional complaints Physical exam (Primary Care) Vital Signs: Last Vital Signs Pulse 71 06/27/23 09:33 BP 134/80 06/27/23 09:33 Pulse Ox 97 06/27/23 09:33 Oxygen Delivery Method Room Air 06/27/23 09:33 BMI result Body Mass Index 39.0 Tobacco/Smoking Status: Tobacco use Status Tobacco use date assessed 06/27/23 06/27/23 09:40 Patient Tobacco Use Status Never used Tobacco 06/27/23 09:40 e-Cigarette/Vaping Use Never Used 06/27/23 09:40 PHQ-9: PHQ-9 Score PHQ-9: Total score 0 06/27/23 09:40 Depression Screening Interpretation: Negative Thrive Assessment: Date of Thrive Assessment Date Thrive assessed 06/27/23 06/27/23 09:40 Currently or been in a relationship where the following occur: no concerns reported Const General: no acute distress HENMT Head: Yes normal to inspection Ears: hearing grossly normal bilaterally Neck Neck: Yes no lymphadenopathy and Yes supple Resp Effort & Inspection: normal respiratory effort Auscultation: clear to auscultation bilaterally Cardio Rhythm: regular rhythm Heart sounds: S1 normal heart sound present and S2 normal heart sound present GI Inspection: Yes normal to inspection Palpation (GI): Soft to palpation Percussion: Yes normal to percussion Auscultation: normal bowel sounds Assessment and Plan Assessment & Plan (1) HTN (hypertension): Code(s): I10 - Essential (primary) hypertension Plan: Continue Cardizem (2) Tachycardia: Comment: Controlled on Cardizem, follow-up with Cardiology Code(s): R00.0 - Tachycardia, unspecified (3) Hypothyroidism: Code(s): E03.9 - Hypothyroidism, unspecified Plan: Continue levothyroxine (4) Cataract: Code(s): H26.9 - Unspecified cataract Plan: Patient is medically cleared for cataract surgery Medications: Refilled diltiazem HCl 180 mg PO DAILY 90 caps 3RF cholecalciferol (vitamin D3) 50 mcg PO DAILY 90 caps 3RF Coding Level of Care Code Est Pt Level 3 (65082) Diagnoses HTN (hypertension) I10 Tachycardia R00.0 Hypothyroidism E03.9 Cataract H26.9
== END 2023-06-27 11:32 | disposition home or self-care (01) ==
PROVIDERS: PCP Internal Medicine; Visit Provider Internal Medicine
DX: I10 Essential (primary) hypertension (principal); R00.0 Tachycardia, unspecified; E03.9 Hypothyroidism, unspecified; H26.9 Unspecified cataract
CPT/HCPCS: 99213

== ENCOUNTER 2024-02-12 07:23 | Outpatient (REF) | payer OTHER, SELFPAY ==
[2024-02-12 10:10] LABS: MANUAL DIFF FLAG NO
[2024-02-12 10:17] LABS: Basophils Absolute Auto 0.1 X10*3/uL (0.0-0.2); Basophils Percent Auto 1.7 % (0-2); Eosinophils Absolute Auto 0.2 X10*3/uL (0.0-0.4); Eosinophils Percent Auto 2.1 % (0-4); Hematocrit 35.7 % (37.0-47.0); Hemoglobin 10.8 g/dl (12.0-16.0); Imm Gran Abs Auto 0.02 X10*3/uL (0.00-0.03); Imm Gran Pct Auto 0.3 % (0.0-0.4); Lymphocytes Absolute Auto 1.9 X10*3/uL (1.2-4.9); Lymphocytes Percent Auto 24.1 % (20-40); Mean Corpuscular HGB Conc 30.3 g/dl (31.0-35.0); Mean Corpuscular Hemoglobin 28.3 pg (27.0-33.0); Mean Corpuscular Volume 93.7 fL (80.0-98.0); Mean Platelet Volume 8.8 fL (9.4-12.3); Monocytes Absolute Auto 0.9 X10*3/uL (0.1-1.2); Monocytes Percent Auto 11.5 % (2-11); Neutrophils Absolute Auto 4.7 x10*3/uL (2.0-8.3); Neutrophils Percent Auto 60.3 % (45-73); Platelet Count 493 X10*3/uL (160-400); Red Blood Count 3.81 X10*6/uL (4.20-5.50); Red Cell Distribution Width 17.2 % (11.0-16.0); White Blood Count 7.8 X10*3/uL (4.8-10.8)
[2024-02-12 10:33] LABS: Appearance Urine Clear; Color Urine Yellow; Glucose Urine UA Negative (Negative); Leukocyte Esterase Urine Small (1+) (Negative); Nitrite Urine Negative (Negative); UMIC TRIGGER UA YES; Urine Blood Negative (Negative); Urine Ketones Negative (Negative); Urine Protein Negative (Neg-Trace)
[2024-02-12 10:38] LABS: Alanine Aminotransferase 26 U/L (0-31); Albumin Level 3.7 g/dL (3.5-5.0); Alkaline Phosphatase 59 U/L (39-117); Anion Gap 11 (12-20); Aspartate Amino Transferase 24 U/L (5-31); Bilirubin Total 0.3 mg/dL (0.0-1.0); Blood Urea Nitrogen 10 mg/dL (9-16); Calcium 9.2 mg/dL (8.4-10.2); Carbon Dioxide 26 mmol/L (22-29); Chloride 107 mmol/L (96-108); Cholesterol 171 mg/dL (<200); Estimated Glomerular Filt Rate > 60; Glucose Fasting 101 mg/dL (60-99); HDL Cholesterol 53 mg/dL (>40); Iron 28 mcg/dL (30-160); LDL Cholesterol Calculated 91 mg/dL (<100); Percent Iron Saturation 9 % (15-50); Potassium 4.5 mmol/L (3.3-5.1); Sodium 139 mmol/L (135-145); Total Iron Binding Capacity 320 mcg/dL (228-428); Total Protein 7.4 g/dL (6.5-8.0); Triglycerides 136 mg/dL (<150); Unsaturated Iron Binding 292 ug/dL
[2024-02-12 10:57] LABS: Bacteria Urine None Seen (None Seen); Hyaline Casts Urine 0-2 /LPF (0-2); RBC Urine 0-2 /HPF (0-2); WBC Urine 0-5 /HPF (0-5)
[2024-02-12 12:12] LABS: Folate 7.5 ng/mL (> or = 4.0); Vitamin B12 564 pg/mL (200-900)
== END 2024-02-12 07:24 | disposition home or self-care (01) ==
LOC: HO.HMGCLDS 07:23
PROVIDERS: PCP Internal Medicine; Visit Provider Internal Medicine
DX: E03.9 Hypothyroidism, unspecified (principal); E53.8 Deficiency of other specified B group vitamins; I10 Essential (primary) hypertension; E87.6 Hypokalemia; R00.0 Tachycardia, unspecified
CPT/HCPCS: 36415; 80053; 80061; 81001; 82306; 82607; 82746; 83540; 84443; 85025

== ENCOUNTER 2024-02-19 08:31 | Outpatient (AMB) | payer OTHER, SELFPAY ==
[2024-02-19 08:34] VITALS: BP 136/80; PULSE 85; O2SAT 98; BMI 41.0
--- NOTE | 2024-02-19 08:34 | A.OFFPC_ITS ---
Vital Signs 02/19/24 08:34 Height 5 ft 2 in Weight 224 lb BMI 41.0 BP 136/80 Blood Pressure Location Lt brachial Position Sitting Pulse 85 Pulse Source Pulse Oximeter Pulse Oximetry (%) 98 Oxygen Delivery Method Room Air Intake Visit Reasons: PE Intake Note: Pt is here today for PE. Allergies sertraline Allergy (Unknown, Verified 02/19/24 08:41) Itching Medication List - Last Reconciled 02/19/24 by Latonia Glaser MD cholecalciferol (vitamin D3) 50 mcg PO DAILY diltiazem HCl CD 180 mg PO DAILY estradiol 10 mcg vaginal 2XW famotidine 20 mg PO DAILY ferrous sulfate 325 mg PO DAILY levothyroxine 50 mcg PO DAILY magnesium oxide 400 mg PO DAILY potassium chloride ER 20 mEq PO DAILY vit B complex 100 combo no.2 ER (Balanced B-100 Complex) 1 tab PO .QD Tobacco use date assessed: 02/19/24 Dental Screening Dental Screen Date: 02/19/24 Did you have a dental visit in the last 12 months?: Yes Did you have a dental problem in the last 6 months where you did not have access to dental care?: No Was dental information given to patient?: Patient has dentist HPI PE HPI Details Patient presents for physical [facility] Medical History (Updated 02/19/24 @ 09:10 by Latonia Glaser MD) Hypokalemia ETOH abuse DJD (degenerative joint disease), lumbar Sleep apnea HTN (hypertension) Normal Pap smear Annual physical exam Hypomagnesemia Sinus arrhythmia Vitamin B 12 deficiency Pre-op exam Lower back pain Hypothyroidism DJD (degenerative joint disease) Tendinopathy Elevated LFTs Anxiety and depression Perimenopausal Surgical History (Updated 02/19/24 @ 09:10 by Latonia Glaser MD) No pertinent past surgical history H/O colonoscopy No pertinent past surgical history Family History Father No problems noted. Mother No problems noted. Father No problems noted. Mother No problems noted. Social History Housing: House Alcohol intake: current Alcohol intake frequency: a few times a month Patient Tobacco Use Status: Never used Tobacco e-Cigarette/Vaping Use: Never Used service: No Current occupational status: unemployed Cognitive needs: No Hearing needs: No Vision needs: Yes Questionnaire PHQ-9 Over the last 2 weeks, how often have you been bothered by any of the following problems? 1. Little interest or pleasure in doing things: not at all 2. Feeling down, depressed, or hopeless: not at all 3. Trouble falling or staying asleep, or sleeping too much: not at all 4. Feeling tired or having little energy: not at all 5. Poor appetite or overeating: not at all 6. Feeling bad about yourself - or that you are a failure or have let yourself or your family down: not at all 7. Trouble concentrating on things, such as reading the newspaper or watching television: not at all 8. Moving or speaking so slowly that other people could have noticed. Or the opposite - being so fidgety or restless that you have been moving around a lot more than usual: not at all 9. Thoughts that you would be better off or of hurting yourself in some way: not at all Total score: 0 Depression Screening Interpretation: Negative Depression Screening Done: Yes 25919 - PHQ-9 Billing: Yes Source: Developed by Drs. Leoncio Llamas, Candy Vargas, Rk Metcalf and colleagues, with an educational kwasi from [employer]. Thrive Questionnaire Date Thrive assessed: 02/19/24 I am a: Patient What is your living situation today?: I have a steady place to live Within the past 12 months, did the food you bought not last and you didn't have the money to get more?: Never true Within the past 12 months, did you worry whether your food would run out before you got money to buy more?: Never true Do you have trouble paying for medicines?: No Do you have trouble getting transportation to medical appointments?: No Do you have trouble paying your heating and electricity bill?: No Do you have trouble taking care of your child, family member or friend?: No Do you have trouble with day-to-day activities such as bathing, preparing meals, shopping, managing finances, etc.?: No Are you currently unemployed and looking for a job?: No Are you interested in more education?: No Please select the resources that you would like help with: None THRIVE Score: 0 AUDIT C Alcohol Use Questionnaire (AUDIT-C) 1. How often do you have a drink containing alcohol?: Monthly or less 2. How many drinks containing alcohol do you have on a typical day when you are drinking?: 1 or 2 3. How often do you have six or more drinks on one occasion?: Never Total Score: 1 NOA-7 AMB Questionnaire NOA-7 Date NOA - 7 assessed: 02/19/24 Feeling nervous, anxious, or on edge: 0 = Not at all Not being able to stop or control worryin = Not at all Worrying too much about different things: 0 = Not at all Trouble relaxin = Not at all Being so restless that it is hard to sit still: 0 = Not at all Becoming easily annoyed or irritable: 0 = Not at all Feeling afraid as if something awful might happen: 0 = Not at all Total NOA-7 score (0-4 normal; 5-9 mild; 10-14 moderate; 15-21 severe): 0 Source: Developed by Drs. Leoncio Llamas, Candy Vargas, Rk Metcalf and colleagues, with an educational kwasi from [employer]. NOA-7 Assessment Billing NOA-7 Assessment Tool: NOA-7 Assessment 55468 Review of Systems Const All systems reviewed & are unremarkable except as noted in HPI and below Eyes Reports no additional complaints ENT Reports no additional complaints Card Reports no additional complaints Resp Reports no additional complaints GI Reports no additional complaints Reports no additional complaints Physical exam (Primary Care) Vital Signs: Last Vital Signs Pulse 85 02/19/24 08:34 BP 136/80 02/19/24 08:34 Pulse Ox 98 02/19/24 08:34 Oxygen Delivery Method Room Air 02/19/24 08:34 BMI result Body Mass Index 41.0 Tobacco/Smoking Status: Tobacco use Status Tobacco use date assessed 02/19/24 02/19/24 08:46 Patient Tobacco Use Status Never used Tobacco 02/19/24 08:35 e-Cigarette/Vaping Use Never Used 02/19/24 08:35 PHQ-9: PHQ-9 Score PHQ-9: Total score 0 02/19/24 09:16 Depression Screening Interpretation: Negative Thrive Assessment: Date of Thrive Assessment Date Thrive assessed 02/19/24 02/19/24 09:01 Const General: no acute distress HENMT Head: Yes normal to inspection Ears: hearing grossly normal bilaterally Face and sinus: Yes normal facial exam Eyes General: appearance normal, both eyes and all related structures Resp Effort & Inspection: normal respiratory effort Auscultation: clear to auscultation bilaterally Cardio Rhythm: regular rhythm Heart sounds: S1 normal heart sound present and S2 normal heart sound present GI Inspection: Yes normal to inspection Palpation (GI): Soft to palpation Percussion: Yes normal to percussion Auscultation: normal bowel sounds Extrem Other: 2+ nonpitting edema of lower extremities Coding Level of Care Code Est Pt Prev Care 40-64y(53502) Diagnoses H/O colonoscopy Z98.890 Annual physical exam Z00.00 Anemia D64.9 Iron deficiency anemia D50.9 HTN (hypertension) I10 Hypothyroidism E03.9 Vitamin B 12 deficiency E53.8 Hypomagnesemia E83.42 Additional Codes NOA-7 Assessment Billing - NOA-7 Assessment Tool: NOA-7 Assessment 51920 ([id number]) Assessment & Plan Assessment & Plan (1) H/O colonoscopy: Comment: 2013 Code(s): Z98.890 - Other specified postprocedural states Category: Surgical Plan: Referred to GI for repeat colonoscopy. Patient requested [facility] (2) Annual physical exam: Code(s): Z00.00 - Encounter for general adult medical examination without abnormal findings Category: Medical Plan: Well-balanced diet regular physical activity weight loss discussed with the patient. She is up-to-date with the mammogram and will be referred to GI for colonoscopy. Patient is up-to-date with Pap smear by change management specialist (3) Anemia: Code(s): D64.9 - Anemia, unspecified Category: Medical Plan: For chronic iron deficiency anemia patient has been taking iron supplement. She will discuss colonoscopy and EGD for chronic GERD with the GI (4) Iron deficiency anemia: Code(s): D50.9 - Iron deficiency anemia, unspecified Category: Medical Plan: Continue iron supplement (5) HTN (hypertension): Code(s): I10 - Essential (primary) hypertension Category: Medical Plan: Continue diltiazem (6) Hypothyroidism: Code(s): E03.9 - Hypothyroidism, unspecified Category: Medical Plan: Continue Levothyroxine (7) Vitamin B 12 deficiency: Code(s): E53.8 - Deficiency of other specified B group vitamins Category: Medical Plan: Continue vitamin B12 supplement (8) Hypomagnesemia: Code(s): E83.42 - Hypomagnesemia Category: Medical Plan: Monitor magnesium level continue supplement Orders: Orders Comprehensive [place]. Panel Fast 1 Year E03.9 - Hypothyroidism, unspecified, E53.8 - Deficiency of other specified B group vitamins, E83.42 - Hypomagnesemia, I10 - Essential (primary) hypertension, Z00.00 - Encounter for general adult medical examination without abnormal findings Complete Blood Count Auto Diff 1 Year E03.9 - Hypothyroidism, unspecified, E53.8 - Deficiency of other specified B group vitamins, E83.42 - Hypomagnesemia, I10 - Essential (primary) hypertension, Z00.00 - Encounter for general adult medical examination without abnormal findings Lipid Panel 1 Year E03.9 - Hypothyroidism, unspecified, E53.8 - Deficiency of other specified B group vitamins, E83.42 - Hypomagnesemia, I10 - Essential (primary) hypertension, Z00.00 - Encounter for general adult medical examination without abnormal findings Vitamin D 25-OH Total 1 Year E03.9 - Hypothyroidism, unspecified, E53.8 - Deficiency of other specified B group vitamins, E83.42 - Hypomagnesemia, I10 - Essential (primary) hypertension, Z00.00 - Encounter for general adult medical examination without abnormal findings TSH reflex Free T4 1 Year E03.9 - Hypothyroidism, unspecified, E53.8 - Deficiency of other specified B group vitamins, E83.42 - Hypomagnesemia, I10 - Essential (primary) hypertension, Z00.00 - Encounter for general adult medical examination without abnormal findings Vitamin B12 and Folate 1 Year E03.9 - Hypothyroidism, unspecified, E53.8 - Deficiency of other specified B group vitamins, E83.42 - Hypomagnesemia, I10 - Essential (primary) hypertension, Z00.00 - Encounter for general adult medical examination without abnormal findings Magnesium 1 Year E83.42 - Hypomagnesemia Referrals Gastroenterology Referral D50.9 - Iron deficiency anemia, unspecified, D64.9 - Anemia, unspecified, Z98.890 - Other specified postprocedural states Medications: New albuterol sulfate 90 mcg/actuation 1 inh inhalation QID PRN 6.7 grams 0RF shortness of breath or wheezing Discontinued famotidine Discontinued Reason: Doctor's Order 20 mg PO DAILY 90 tabs 1RF
== END 2024-02-19 10:58 | disposition home or self-care (01) ==
PROVIDERS: PCP Internal Medicine; Visit Provider Internal Medicine
DX: Z98.890 Other specified postprocedural states (principal); Z00.00 Encounter for general adult medical examination without abnormal findings; D64.9 Anemia, unspecified; D50.9 Iron deficiency anemia, unspecified; I10 Essential (primary) hypertension; E03.9 Hypothyroidism, unspecified; E53.8 Deficiency of other specified B group vitamins; E83.42 Hypomagnesemia

== ENCOUNTER → 2024-02-19 08:31 | Outpatient (BNVA) | payer OTHER, SELFPAY | PROVIDERS: PCP Internal Medicine; Visit Provider Internal Medicine | DX: Z00.00 Encounter for general adult medical examination without abnormal findings (principal); D50.9 Iron deficiency anemia, unspecified; I10 Essential (primary) hypertension; E03.9 Hypothyroidism, unspecified; E83.42 Hypomagnesemia; E53.8 Deficiency of other specified B group vitamins; Z98.890 Other specified postprocedural states | CPT/HCPCS: 96127; 99396 ==

== ENCOUNTER 2024-10-20 08:23 | Outpatient (REF) | payer OTHER, SELFPAY ==
[2024-10-20 10:20] LABS: MANUAL DIFF FLAG NO
[2024-10-20 10:48] LABS: Basophils Absolute Auto 0.1 X10*3/uL (0.0-0.2); Basophils Percent Auto 0.9 % (0-2); Eosinophils Absolute Auto 0.3 X10*3/uL (0.0-0.4); Eosinophils Percent Auto 2.6 % (0-4); Hematocrit 42.4 % (37.0-47.0); Hemoglobin 13.8 g/dl (12.0-16.0); Imm Gran Abs Auto 0.04 X10*3/uL (0.00-0.03); Imm Gran Pct Auto 0.4 % (0.0-0.4); Lymphocytes Absolute Auto 2.8 X10*3/uL (1.2-4.9); Lymphocytes Percent Auto 26.8 % (20-40); Mean Corpuscular HGB Conc 32.5 g/dl (31.0-35.0); Mean Corpuscular Hemoglobin 30.1 pg (27.0-33.0); Mean Corpuscular Volume 92.4 fL (80.0-98.0); Mean Platelet Volume 9.4 fL (9.4-12.3); Monocytes Absolute Auto 0.8 X10*3/uL (0.1-1.2); Monocytes Percent Auto 7.4 % (2-11); Neutrophils Absolute Auto 6.5 x10*3/uL (2.0-8.3); Neutrophils Percent Auto 61.9 % (45-73); Platelet Count 318 X10*3/uL (160-400); Red Blood Count 4.59 X10*6/uL (4.20-5.50); Red Cell Distribution Width 15.9 % (11.0-16.0); White Blood Count 10.6 X10*3/uL (4.8-10.8)
[2024-10-20 11:24] LABS: Alanine Aminotransferase 14 U/L (0-31); Albumin Level 4.1 g/dL (3.5-5.0); Alkaline Phosphatase 59 U/L (39-117); Anion Gap 11 (12-20); Aspartate Amino Transferase 20 U/L (5-31); Bilirubin Total 0.4 mg/dL (0.0-1.0); Blood Urea Nitrogen 10 mg/dL (9-16); Calcium 9.6 mg/dL (8.4-10.2); Carbon Dioxide 30 mmol/L (22-29); Chloride 103 mmol/L (96-108); Cholesterol 173 mg/dL (<200); Estimated Glomerular Filt Rate > 60; Glucose Fasting 109 mg/dL (60-99); HDL Cholesterol 48 mg/dL (>40); LDL Cholesterol Calculated 99 mg/dL (<100); Magnesium 1.8 mg/dL (1.6-2.6); Potassium 4.7 mmol/L (3.3-5.1); Sodium 139 mmol/L (135-145); Total Protein 7.7 g/dL (6.5-8.0); Triglycerides 130 mg/dL (<150)
[2024-10-20 11:44] LABS: TSH reflex Free T4 3.94 uIU/mL (0.32-4.0); Vitamin D 25-OH Total 43.7 ng/mL (>30)
[2024-10-20 11:50] LABS: Folate 13.2 ng/mL (> or = 4.0); Vitamin B12 857 pg/mL (200-900)
== END 2024-10-20 08:24 | disposition home or self-care (01) ==
LOC: HO.HMGCLDS 08:23
PROVIDERS: PCP Internal Medicine; Visit Provider Internal Medicine
DX: Z00.00 Encounter for general adult medical examination without abnormal findings (principal); E03.9 Hypothyroidism, unspecified; E53.8 Deficiency of other specified B group vitamins; E83.42 Hypomagnesemia; I10 Essential (primary) hypertension
CPT/HCPCS: 36415; 80053; 80061; 82306; 82607; 82746; 83735; 84443; 85025

== ENCOUNTER 2024-11-18 11:28 | Outpatient (AMB) | payer OTHER, SELFPAY ==
[2024-11-18 11:30] VITALS: BP 120/72; PULSE 91; RESP 18; TEMP 36.7; O2SAT 97; BMI 42.1
--- NOTE | 2024-11-18 11:30 | A.OFFPC_ITS ---
Vital Signs 11/18/24 11:30 Height 5 ft 2 in Weight 230 lb BMI 42.1 BP 120/72 Blood Pressure Location Lt brachial Position Sitting Respiration 18 Pulse 91 Pulse Source Pulse Oximeter Temp 98.1 F Temp Source Oral Pulse Oximetry (%) 97 Oxygen Delivery Method Room Air Intake Visit Reasons: ER follow up Intake Note: Pt is here today for ER follow up visit. Allergies sertraline Allergy (Unknown, Verified 11/18/24 11:30) Itching Medication List - Last Reconciled 11/18/24 by Latonia Glaser MD cholecalciferol (vitamin D3) 50 mcg PO DAILY diltiazem HCl CD 180 mg PO DAILY estradiol 10 mcg vaginal 2XW ferrous sulfate 325 mg PO DAILY levothyroxine 50 mcg PO DAILY magnesium oxide 400 mg PO DAILY potassium chloride ER 20 mEq PO DAILY Ventolin HFA 90 mcg/actuation (albuterol sulfate) 1 inh inhalation QID PRN NS vit B complex 100 combo no.2 ER (Balanced B-100 Complex) 1 tab PO .QD Tobacco use date assessed: 11/18/24 Dental Screening Dental Screen Date: 11/18/24 Did you have a dental visit in the last 12 months?: Yes Did you have a dental problem in the last 6 months where you did not have access to dental care?: No Was dental information given to patient?: Patient has dentist HPI ER follow up HPI Details Patient presents for the follow-up of ER visit at [facility]. Patient went to endoscopy unit to have EGD and colonoscopy but was found to be in AFib with rapid ventricular rate. She was sent to the ER. EKG showed AFib with heart rate of 120. Basic blood work was negative for acute ischemia. Bedside ultrasound was negative for B lines , pericardial effusion and showed adequate cardiac contractility. Patient was given IV fluids and a dose of Cardizem and discharged home. Patient denies chest pain palpitations shortness or breath. She had an episode of AFib about 4 years ago and was seen by ranch helper at [facility] but has not had a follow-up since then. Patient was never started on anticoagulation. She has not been drinking alcohol for over 3 months. Hypothyroidism is controlled on levothyroxine. [facility] Medical History (Updated 11/18/24 @ 12:25 by Latonia Glaser MD) Hypokalemia ETOH abuse DJD (degenerative joint disease), lumbar Sleep apnea HTN (hypertension) Normal Pap smear Annual physical exam Hypomagnesemia Sinus arrhythmia Vitamin B 12 deficiency Pre-op exam Lower back pain Hypothyroidism DJD (degenerative joint disease) Tendinopathy Elevated LFTs Anxiety and depression Perimenopausal Surgical History No pertinent past surgical history H/O colonoscopy No pertinent past surgical history Family History Father No problems noted. Mother No problems noted. Father No problems noted. Mother No problems noted. Social History Housing: House Alcohol intake: current Alcohol intake frequency: a few times a month Patient Tobacco Use Status: Never used Tobacco e-Cigarette/Vaping Use: Never Used service: No Current occupational status: unemployed Cognitive needs: No Hearing needs: No Vision needs: Yes Questionnaire PHQ-9 Over the last 2 weeks, how often have you been bothered by any of the following problems? 1. Little interest or pleasure in doing things: not at all 2. Feeling down, depressed, or hopeless: not at all 3. Trouble falling or staying asleep, or sleeping too much: not at all 4. Feeling tired or having little energy: not at all 5. Poor appetite or overeating: not at all 6. Feeling bad about yourself - or that you are a failure or have let yourself or your family down: not at all 7. Trouble concentrating on things, such as reading the newspaper or watching television: not at all 8. Moving or speaking so slowly that other people could have noticed. Or the opposite - being so fidgety or restless that you have been moving around a lot more than usual: not at all 9. Thoughts that you would be better off or of hurting yourself in some way: not at all Total score: 0 Depression Screening Interpretation: Negative Depression Screening Done: Yes 33350 - PHQ-9 Billing: Yes Source: Developed by Drs. Leoncio Llamas, Candy Vargas, Rk Metcalf and colleagues, with an educational kwasi from [employer]. Thrive Questionnaire Date Thrive assessed: 11/18/24 I am a: Patient What is your living situation today?: I have a steady place to live Within the past 12 months, did the food you bought not last and you didn't have the money to get more?: Never true Within the past 12 months, did you worry whether your food would run out before you got money to buy more?: Never true Do you have trouble paying for medicines?: No Do you have trouble getting transportation to medical appointments?: No Do you have trouble paying your heating and electricity bill?: No Do you have trouble taking care of your child, family member or friend?: No Do you have trouble with day-to-day activities such as bathing, preparing meals, shopping, managing finances, etc.?: No Are you currently unemployed and looking for a job?: No Are you interested in more education?: No Please select the resources that you would like help with: None THRIVE Score: 0 NOA-7 AMB Questionnaire NOA-7 Date NOA - 7 assessed: 11/18/24 Feeling nervous, anxious, or on edge: 0 = Not at all Not being able to stop or control worryin = Not at all Worrying too much about different things: 0 = Not at all Trouble relaxin = Not at all Being so restless that it is hard to sit still: 0 = Not at all Becoming easily annoyed or irritable: 0 = Not at all Feeling afraid as if something awful might happen: 0 = Not at all Total NOA-7 score (0-4 normal; 5-9 mild; 10-14 moderate; 15-21 severe): 0 Source: Developed by Drs. Leoncio Llamas, Candy Vargas, Rk Metcalf and colleagues, with an educational kwasi from [employer]. NOA-7 Assessment Billing NOA-7 Assessment Tool: NOA-7 Assessment 92961 Review of Systems Const All systems reviewed & are unremarkable except as noted in HPI and below ENT Reports no additional complaints Card Reports no additional complaints Resp Reports no additional complaints GI Reports no additional complaints Reports no additional complaints Physical exam (Primary Care) Vital Signs: Last Vital Signs Temp 98.1 F 11/18/24 11:30 Pulse 91 11/18/24 11:30 Resp 18 11/18/24 11:30 BP 120/72 11/18/24 11:30 Pulse Ox 97 11/18/24 11:30 Oxygen Delivery Method Room Air 11/18/24 11:30 BMI result Body Mass Index 42.1 Tobacco/Smoking Status: Tobacco use Status Tobacco use date assessed 11/18/24 11/18/24 11:36 Patient Tobacco Use Status Never used Tobacco 11/18/24 11:36 e-Cigarette/Vaping Use Never Used 11/18/24 11:36 PHQ-9: PHQ-9 Score PHQ-9: Total score 0 11/18/24 11:36 Depression Screening Interpretation: Negative Thrive Assessment: Date of Thrive Assessment Date Thrive assessed 11/18/24 11/18/24 11:36 Const General: no acute distress HENMT Head: Yes normal to inspection Eyes General: appearance normal, both eyes and all related structures Resp Effort & Inspection: normal respiratory effort Auscultation: clear to auscultation bilaterally Cardio Rate: tachycardic Rhythm: abnormal rhythm irregularly irregular Heart sounds: S1 normal heart sound present and S2 normal heart sound present GI Inspection: Yes normal to inspection Palpation (GI): Soft to palpation Percussion: Yes normal to percussion Auscultation: normal bowel sounds Coding Level of Care Code Est Pt Level 4 (85060) Complex EM visit Add On G2211 Diagnoses A-fib I48.91 Hypothyroidism E03.9 Additional Codes NOA-7 Assessment Billing - NOA-7 Assessment Tool: NOA-7 Assessment 48264 ([id number]) PHQ-9 - 55586 - PHQ-9 Billing: Yes ([id number]) Assessment & Plan Assessment & Plan (1) A-fib: Code(s): I48.91 - Unspecified atrial fibrillation Category: Medical Plan: EKG showed AFib with a heart rate of 112. No acute ST-T changes. Metoprolol 25 b.i.d. will be added to diltiazem because of patient's borderline low blood pressure. Eliquis will be started for anticoagulation. Patient requested referral to [facility] Cardiology. She will follow-up in 10 days (2) Hypothyroidism: Code(s): E03.9 - Hypothyroidism, unspecified Category: Medical Plan: Continue levothyroxine Orders: Referrals Cardiology Referral I48.91 - Unspecified atrial fibrillation Medications: New metoprolol tartrate 25 mg PO BID 60 tabs 0RF apixaban (Eliquis) 5 mg PO BID 180 tabs 1RF
== END 2024-11-18 12:29 | disposition home or self-care (01) ==
LOC: HO.HMCC 11:29
PROVIDERS: PCP Internal Medicine; Visit Provider Internal Medicine
DX: I48.91 Unspecified atrial fibrillation (principal); E03.9 Hypothyroidism, unspecified

== ENCOUNTER → 2024-11-18 11:28 | Outpatient (BNVA) | payer OTHER, SELFPAY | PROVIDERS: PCP Internal Medicine; Visit Provider Internal Medicine | DX: I10 Essential (primary) hypertension (principal); I48.91 Unspecified atrial fibrillation; E03.9 Hypothyroidism, unspecified; Z79.899 Other long term (current) drug therapy | CPT/HCPCS: 96127; 99212 ==

== ENCOUNTER 2024-11-27 08:59 | Outpatient (AMB) | payer OTHER, SELFPAY ==
--- NOTE | 2024-11-27 09:01 | MHC.PC.OV ---
Vital Signs 11/27/24 09:02 Height 5 ft 2 in Weight 233 lb BMI 42.6 BP 122/78 Blood Pressure Location Lt brachial Position Sitting Respiration 20 Pulse 70 Pulse Source Pulse Oximeter Temp 98.1 F Temp Source Oral Pulse Oximetry (%) 97 Oxygen Delivery Method Room Air Intake Visit Reasons: 10 days f/up Intake Note: Pt is here today for a follow up visit on BP. Pt states that her ankles and feet are swollen. Allergies sertraline Allergy (Unknown, Verified 11/18/24 11:30) Itching Medication List - Last Reconciled 11/27/24 by Latonia Glaser MD apixaban (Eliquis) 5 mg PO BID cholecalciferol (vitamin D3) 50 mcg PO DAILY diltiazem HCl CD 180 mg PO DAILY estradiol 10 mcg vaginal 2XW ferrous sulfate 325 mg PO DAILY levothyroxine 50 mcg PO DAILY magnesium oxide 400 mg PO DAILY metoprolol tartrate 25 mg PO BID potassium chloride ER 20 mEq PO DAILY Ventolin HFA 90 mcg/actuation (albuterol sulfate) 1 inh inhalation QID PRN NS vit B complex 100 combo no.2 ER (Balanced B-100 Complex) 1 tab PO .QD Tobacco use date assessed: 11/27/24 Dental Screening Dental Screen Date: 11/18/24 HPI 10 days f/up HPI Details Patient presents for the follow-up. She reports increased lower extremity swelling during the hot weather. Patient denies chest pain shortness or breath, palpitations. She noticed hot flashes and intermittent headache at night. Patient has been monitoring her blood pressure and heart rate at home with the readings of 120/60 and a heart rate in 70's [facility] Medical History (Updated 11/27/24 @ 10:29 by Latonia Glaser MD) Edema A-fib Hypokalemia ETOH abuse DJD (degenerative joint disease), lumbar Sleep apnea HTN (hypertension) Normal Pap smear Annual physical exam Hypomagnesemia Vitamin B 12 deficiency Pre-op exam Lower back pain Hypothyroidism DJD (degenerative joint disease) Tendinopathy Elevated LFTs Anxiety and depression Perimenopausal Surgical History No pertinent past surgical history H/O colonoscopy No pertinent past surgical history Family History Father No problems noted. Mother No problems noted. Father No problems noted. Mother No problems noted. Social History Housing: House Alcohol intake: current Alcohol intake frequency: a few times a month Patient Tobacco Use Status: Never used Tobacco e-Cigarette/Vaping Use: Never Used service: No Current occupational status: unemployed Cognitive needs: No Hearing needs: No Vision needs: Yes Questionnaire Thrive Questionnaire Date Thrive assessed: 11/18/24 NOA-7 AMB Questionnaire NOA-7 Date NOA - 7 assessed: 11/18/24 Source: Developed by Drs. Leoncio Llamas, Candy Vargas, Rk Metcalf and colleagues, with an educational kwasi from [employer]. Review of Systems Const All systems reviewed & are unremarkable except as noted in HPI and below Eyes Reports no additional complaints ENT Reports no additional complaints Card Reports no additional complaints Resp Reports no additional complaints GI Reports no additional complaints Reports no additional complaints Physical exam (Primary Care) Vital Signs: Last Vital Signs Temp 98.1 F 11/27/24 09:02 Pulse 70 11/27/24 09:02 Resp 20 11/27/24 09:02 BP 122/78 11/27/24 09:02 Pulse Ox 97 11/27/24 09:02 Oxygen Delivery Method Room Air 11/27/24 09:02 BMI result Body Mass Index 42.6 Tobacco/Smoking Status: Tobacco use Status Tobacco use date assessed 11/27/24 11/27/24 09:09 Patient Tobacco Use Status Never used Tobacco 11/27/24 09:03 e-Cigarette/Vaping Use Never Used 11/27/24 09:03 Thrive Assessment: Date of Thrive Assessment Date Thrive assessed 11/18/24 11/27/24 09:03 Const General: no acute distress Eyes General: appearance normal, both eyes and all related structures Neck Neck: Yes supple Resp Effort & Inspection: normal respiratory effort Auscultation: clear to auscultation bilaterally Cardio Rhythm: regular rhythm Heart sounds: S1 normal heart sound present and S2 normal heart sound present Extrem Other: 2+ nonpitting edema both lower extremities Coding Level of Care Code Est Pt Level 4 (44547) Complex EM visit Add On G2211 Diagnoses HTN (hypertension) I10 A-fib I48.91 Iron deficiency anemia D50.9 Edema R60.9 Assessment & Plan Assessment & Plan (1) HTN (hypertension): Code(s): I10 - Essential (primary) hypertension Category: Medical Plan: Decrease Cardizem from 180-120 because of worsening lower extremity edema, (2) A-fib: Comment: recurrent with RVR, [facility] cardiac ultrasound normal heart activity no pericardial fluid, 11/18/2024 ER [facility] visit, established with Cardiology at [facility], started on metoprolol and Eliquis Code(s): I48.91 - Unspecified atrial fibrillation Category: Medical Plan: Decrease Cardizem to 120 continue metoprolol 50 mg and Eliquis. EKG showed normal sinus rhythm with a heart rate of [address]-T changes. Patient will follow-up with her Cardiology at [facility] (3) Iron deficiency anemia: Code(s): D50.9 - Iron deficiency anemia, unspecified Category: Medical Plan: Patient stopped iron supplement, check CBC in 2 weeks (4) Edema: Code(s): R60.9 - Edema, unspecified Category: Medical Plan: Decrease Cardizem dose to 120 mg and start furosemide 20 mg every other day as needed , pt will follow-up in 2 weeks with labs before Orders: Orders Complete Blood Count Auto Diff 2 Weeks D50.9 - Iron deficiency anemia, unspecified, E03.9 - Hypothyroidism, unspecified, I10 - Essential (primary) hypertension, I48.91 - Unspecified atrial fibrillation AMB EKG-In Office Today I10 - Essential (primary) hypertension, I48.91 - Unspecified atrial fibrillation, I49.8 - Other specified cardiac arrhythmias ECG 3 day holter monitor 2 Weeks D50.9 - Iron deficiency anemia, unspecified, E03.9 - Hypothyroidism, unspecified, I10 - Essential (primary) hypertension, I48.91 - Unspecified atrial fibrillation Comprehensive Met. Panel 2 Weeks D50.9 - Iron deficiency anemia, unspecified, E03.9 - Hypothyroidism, unspecified, I10 - Essential (primary) hypertension, I48.91 - Unspecified atrial fibrillation Magnesium 2 Weeks D50.9 - Iron deficiency anemia, unspecified, E03.9 - Hypothyroidism, unspecified, I10 - Essential (primary) hypertension, I48.91 - Unspecified atrial fibrillation IRON PROFILE 2 Weeks D50.9 - Iron deficiency anemia, unspecified, E03.9 - Hypothyroidism, unspecified, I10 - Essential (primary) hypertension, I48.91 - Unspecified atrial fibrillation Medications: New furosemide (Lasix) 20 mg PO Q OTHER DAY 60 tabs 0RF diltiazem HCl CD (Cartia XT) 120 mg PO DAILY 90 caps 0RF Discontinued ferrous sulfate Discontinued Reason: Doctor's Order 325 mg PO DAILY 90 tabs 1RF diltiazem HCl CD Discontinued Reason: Doctor's Order 180 mg PO DAILY 90 caps 3RF
[2024-11-27 09:02] VITALS: BP 122/78; PULSE 70; RESP 20; TEMP 36.7; O2SAT 97; BMI 42.6
== END 2024-11-27 10:32 | disposition home or self-care (01) ==
LOC: HO.HMCC 09:00
PROVIDERS: PCP Internal Medicine; Visit Provider Internal Medicine
DX: I10 Essential (primary) hypertension (principal); I48.91 Unspecified atrial fibrillation; D50.9 Iron deficiency anemia, unspecified; R60.9 Edema, unspecified

== ENCOUNTER → 2024-11-27 08:59 | Outpatient (BNVA) | payer OTHER, SELFPAY | PROVIDERS: PCP Internal Medicine; Visit Provider Internal Medicine | DX: I10 Essential (primary) hypertension (principal); I48.91 Unspecified atrial fibrillation; D50.9 Iron deficiency anemia, unspecified; R60.9 Edema, unspecified; E03.9 Hypothyroidism, unspecified; I49.8 Other specified cardiac arrhythmias | CPT/HCPCS: 99212 ==

== ENCOUNTER 2024-12-11 09:53 | Outpatient (REF) | payer OTHER, SELFPAY ==
[2024-12-11 12:58] LABS: MANUAL DIFF FLAG NO
[2024-12-11 13:06] LABS: Hematocrit 38.8 % (37.0-47.0); Hemoglobin 12.5 g/dl (12.0-16.0); Imm Gran Abs Auto 0.05 X10*3/uL (0.00-0.03); Imm Gran Pct Auto 0.5 % (0.0-0.4); Lymphocytes Absolute Auto 3.0 X10*3/uL (1.2-4.9); Mean Corpuscular HGB Conc 32.2 g/dl (31.0-35.0); Mean Corpuscular Hemoglobin 29.6 pg (27.0-33.0); Mean Corpuscular Volume 91.9 fL (80.0-98.0); NRBC Abs Auto 0.000 X10*3/uL (0.0-0.012); NRBC Pct Auto 0.0 /100WBC (0.0-0.2); Platelet Count 180 X10*3/uL (160-400); Red Blood Count 4.22 X10*6/uL (4.20-5.50); White Blood Count 9.8 X10*3/uL (4.8-10.8)
[2024-12-11 13:25] LABS: Alanine Aminotransferase 46 U/L (0-31); Albumin Level 4.4 g/dL (3.5-5.0); Alkaline Phosphatase 73 U/L (39-117); Anion Gap 14 (12-20); Aspartate Amino Transferase 65 U/L (5-31); Blood Urea Nitrogen 20 mg/dL (9-16); Calcium 10.0 mg/dL (8.4-10.2); Carbon Dioxide 27 mmol/L (22-29); Chloride 102 mmol/L (96-108); Estimated Glomerular Filt Rate > 60; Iron 35 mcg/dL (30-160); Magnesium 1.7 mg/dL (1.6-2.6); Percent Iron Saturation 13 % (15-50); Potassium 4.3 mmol/L (3.3-5.1); Sodium 139 mmol/L (135-145); Total Iron Binding Capacity 273 mcg/dL (228-428); Total Protein 7.9 g/dL (6.5-8.0); Unsaturated Iron Binding 238 ug/dL; Uric Acid 7.9 mg/dL (2.4-5.7)
== END 2024-12-11 09:54 | disposition home or self-care (01) ==
LOC: HO.HMGCLDS 09:53
PROVIDERS: PCP Internal Medicine; Visit Provider Internal Medicine
DX: I10 Essential (primary) hypertension (principal); I48.91 Unspecified atrial fibrillation; E03.9 Hypothyroidism, unspecified; D50.9 Iron deficiency anemia, unspecified; G47.30 Sleep apnea, unspecified; E66.9 Obesity, unspecified; Z68.41 Body mass index [BMI] 40.0-44.9, adult
CPT/HCPCS: 36415; 80053; 83540; 83735; 84443; 84550; 85025; 96127; 99212

== ENCOUNTER 2024-12-11 09:53 | Outpatient (AMB) | payer OTHER, SELFPAY ==
--- NOTE | 2024-12-11 09:58 | A.OFFPC_ITS ---
Vital Signs 12/11/24 10:09 Height 5 ft 2 in Weight 226 lb BMI 41.3 BP 114/80 Blood Pressure Location Lt brachial Position Sitting Respiration 16 Pulse 69 Pulse Source Pulse Oximeter Temp 98.1 F Temp Source Oral Pulse Oximetry (%) 94 Oxygen Delivery Method Room Air Intake Visit Reasons: 2 week follow up Hospital Pharmacy Technician Required: No Accompanied by: Self / Same As Patient Allergies sertraline Allergy (Unknown, Verified 12/11/24 10:11) Itching Medication List - Last Reconciled 12/11/24 by Latonia Glaser MD apixaban (Eliquis) 5 mg PO BID cholecalciferol (vitamin D3) 50 mcg PO DAILY diltiazem HCl CD (Cartia XT) 120 mg PO DAILY estradiol 10 mcg vaginal 2XW furosemide (Lasix) 20 mg PO Q OTHER DAY indomethacin ER 75 mg PO DAILY levothyroxine 50 mcg PO DAILY magnesium oxide 400 mg PO DAILY metoprolol tartrate 25 mg PO BID potassium chloride ER 20 mEq PO DAILY Ventolin HFA 90 mcg/actuation (albuterol sulfate) 1 inh inhalation QID PRN NS vit B complex 100 combo no.2 ER (Balanced B-100 Complex) 1 tab PO .QD Tobacco use date assessed: 12/11/24 Dental Screening Dental Screen Date: 12/11/24 Did you have a dental visit in the last 12 months?: No Did you have a dental problem in the last 6 months where you did not have access to dental care?: No Was dental information given to patient?: Patient has dentist HPI 2 week follow up HPI Details Patient presents for the follow-up of episode of AFib with rapid ventricular rate. Patient denies any recurrent symptoms of palpitations. She noticed decreased lower extremity swelling since lowering dose of Cardizem. Patient has been taking furosemide up to twice a week follow extremity swelling. She had an episode of left foot pain swelling and redness for 3 days and is concerned about gout. [facility] Medical History (Updated 12/11/24 @ 15:48 by Latonia Glaser MD) Edema A-fib Hypokalemia ETOH abuse DJD (degenerative joint disease), lumbar Sleep apnea HTN (hypertension) Normal Pap smear Annual physical exam Hypomagnesemia Vitamin B 12 deficiency Pre-op exam Lower back pain Hypothyroidism DJD (degenerative joint disease) Tendinopathy Elevated LFTs Anxiety and depression Perimenopausal Surgical History No pertinent past surgical history H/O colonoscopy No pertinent past surgical history Family History Father No problems noted. Mother No problems noted. Father No problems noted. Mother No problems noted. Social History Housing: House Alcohol intake: current Alcohol intake frequency: a few times a month Patient Tobacco Use Status: Never used Tobacco e-Cigarette/Vaping Use: Never Used service: No Current occupational status: unemployed Cognitive needs: No Hearing needs: No Vision needs: Yes Questionnaire PHQ-9 Over the last 2 weeks, how often have you been bothered by any of the following problems? 1. Little interest or pleasure in doing things: not at all 2. Feeling down, depressed, or hopeless: not at all 3. Trouble falling or staying asleep, or sleeping too much: not at all 4. Feeling tired or having little energy: not at all 5. Poor appetite or overeating: not at all 6. Feeling bad about yourself - or that you are a failure or have let yourself or your family down: not at all 7. Trouble concentrating on things, such as reading the newspaper or watching television: not at all 8. Moving or speaking so slowly that other people could have noticed. Or the opposite - being so fidgety or restless that you have been moving around a lot more than usual: not at all 9. Thoughts that you would be better off or of hurting yourself in some way: not at all Total score: 0 Depression Screening Interpretation: Negative Depression Screening Done: Yes 69776 - PHQ-9 Billing: Yes Source: Developed by Drs. Leoncio Llamas, Candy Vargas, Rk Metcalf and colleagues, with an educational kwasi from [employer]. Thrive Questionnaire Date Thrive assessed: 11/18/24 Review of Systems Const All systems reviewed & are unremarkable except as noted in HPI and below Eyes Reports no additional complaints ENT Reports no additional complaints Card Reports no additional complaints Resp Reports no additional complaints GI Reports no additional complaints Reports no additional complaints Physical exam (Primary Care) Vital Signs: Last Vital Signs Temp 98.1 F 12/11/24 10:09 Pulse 69 12/11/24 10:09 Resp 16 12/11/24 10:09 BP 114/80 12/11/24 10:09 Pulse Ox 94 12/11/24 10:09 Oxygen Delivery Method Room Air 12/11/24 10:09 BMI result Body Mass Index 41.3 Tobacco/Smoking Status: Tobacco use Status Tobacco use date assessed 12/11/24 12/11/24 10:00 Patient Tobacco Use Status Never used Tobacco 12/11/24 10:00 e-Cigarette/Vaping Use Never Used 12/11/24 10:00 PHQ-9: PHQ-9 Score PHQ-9: Total score 0 12/11/24 10:09 Depression Screening Interpretation: Negative Thrive Assessment: Date of Thrive Assessment Date Thrive assessed 11/18/24 12/11/24 10:00 Const General: no acute distress HENMT Face and sinus: Yes normal facial exam Neck Neck: Yes supple Resp Effort & Inspection: normal respiratory effort Auscultation: clear to auscultation bilaterally Cardio Rhythm: regular rhythm Heart sounds: S1 normal heart sound present and S2 normal heart sound present GI Inspection: Yes normal to inspection Palpation (GI): Soft to palpation Extrem Other: 3+ nonpitting edema bilaterally Coding Level of Care Code Est Pt Level 4 (69380) Diagnoses HTN (hypertension) I10 A-fib I48.91 Hypothyroidism E03.9 Sleep apnea G47.30 Obesity E66.9 Additional Codes PHQ-9 - 38210 - PHQ-9 Billing: Yes ([id number]) Assessment & Plan Assessment & Plan (1) HTN (hypertension): Code(s): I10 - Essential (primary) hypertension Category: Medical Plan: Continue current medications (2) A-fib: Comment: recurrent with RVR, ER [facility]:bedside cardiac ultrasound, normal heart activity no pericardial fluid, 11/18/2024 established with Cardiology at [facility], Code(s): I48.91 - Unspecified atrial fibrillation Category: Medical Plan: Continue metoprolol Cardizem and Eliquis. Follow-up with Cardiology echocardiogram will be scheduled (3) Hypothyroidism: Code(s): E03.9 - Hypothyroidism, unspecified Category: Medical Plan: Continue Levothyroxine (4) Sleep apnea: Comment: On CPAP Code(s): G47.30 - Sleep apnea, unspecified Category: Medical Plan: Continue Cpap (5) Obesity: Code(s): E66.9 - Obesity, unspecified Category: Medical Plan: Decreasing caloric intake increasing physical activity discussed with the patient follow-up in 2 months Orders: Orders TSH reflex Free T4 Today E03.9 - Hypothyroidism, unspecified, I10 - Essential (primary) hypertension, I48.91 - Unspecified atrial fibrillation CA echo transthoracic complete Today E03.9 - Hypothyroidism, unspecified, I10 - Essential (primary) hypertension, I48.91 - Unspecified atrial fibrillation Comprehensive Met. Panel Today E03.9 - Hypothyroidism, unspecified, I10 - E ssential (primary) hypertension, I48.91 - Unspecified atrial fibrillation Uric Acid Today E03.9 - Hypothyroidism, unspecified, I10 - Essential (primary) hypertension, I48.91 - Unspecified atrial fibrillation Complete Blood Count Auto Diff Today E03.9 - Hypothyroidism, unspecified, I10 - Essential (primary) hypertension, I48.91 - Unspecified atrial fibrillation Medications: New indomethacin ER 75 mg PO DAILY 20 caps 0RF Refilled diltiazem HCl CD (Cartia XT) 120 mg PO DAILY 90 caps 3RF Ventolin HFA 90 mcg/actuation (albuterol sulfate) 1 inh inhalation QID PRN 8 grams 3RF shortness of breath or wheezing NS
[2024-12-11 10:09] VITALS: BP 114/80; PULSE 69; RESP 16; TEMP 36.7; O2SAT 94; BMI 41.3
== END 2024-12-11 11:17 | disposition home or self-care (01) ==
LOC: HO.HMCC 09:54
PROVIDERS: PCP Internal Medicine; Visit Provider Internal Medicine
DX: I10 Essential (primary) hypertension (principal); I48.91 Unspecified atrial fibrillation; E66.9 Obesity, unspecified; Z68.41 Body mass index [BMI] 40.0-44.9, adult; E03.9 Hypothyroidism, unspecified; G47.30 Sleep apnea, unspecified

== ENCOUNTER → 2025-01-15 11:17 | Outpatient (REF) | payer OTHER, SELFPAY ==
--- NOTE | 2025-01-15 11:18 | CA_ITS ---
Transthoracic Echocardiogram Patient (Last, First, Middle): Migdalia Zaldivar, Gender: F Date of : 1960 Age: 64 Procedure Date: 01/15/2025 Procedure Type: Transthoracic Echocardiogram Location: OP Height: 154.94 cm Weight: 95.26 kg BSA: 1.93 m2 Heart Rate: bpm BP: 130 / 82 mmHg Terminal Supervisor: Referring MD: Latonia Glaser MD Symptoms: I10 - Essential (primary) hypertension, I48.91 unspecified afib Study Quality: Adequate ECG Rhythm: Atrial Fibrillation Conclusions: - The left ventricular systolic function is mildly decreased. The calculated ejection fraction is 45% by biplane method. - No obvious valvular pathology seen on this study. - There is mild dilatation of the ascending aorta measuring 3.80 cm. Findings Left Ventricle Normal left ventricular cavity size. The left ventricular systolic function is mildly decreased. The calculated ejection fraction is 45% by biplane method. There is mild global hypokinesis. Diastolic function is indeterminate on the basis of available data. There is moderate septal asymmetric hypertrophy. Right Ventricle Normal right ventricular cavity size and systolic function. Atria The left atrium is mildly dilated. The right atrium is normal in size. Aortic Valve There is a normal trileaflet aortic valve. There is no aortic valve stenosis. There is trace (trivial) aortic valve regurgitation. Mitral Valve The mitral valve appears normal. There is mild mitral valve regurgitation. There is no mitral valve stenosis. Pulmonic Valve The pulmonic valve is likely normal. Tricuspid Valve There is mild tricuspid valve regurgitation. There is no evidence of pulmonary hypertension. Great Vessels There is mild dilatation of the ascending aorta measuring 3.80 cm. Venous The inferior vena cava is normal in size and collapses greater than 50% with inspiration. Pericardium/Pleural There is no evidence of pericardial effusion. Prior Study Comparison No prior study available for comparison. Recommendations, Care & Conclusions No obvious valvular pathology seen on this study. Measurements 2D Linear Measurements IVSd: 1.36 0.6-0.9/0.6-1.0 cm LVIDd: 4.09 3.9-5.3/4.2-5.9 cm LVIDd Index: 2.12 2.4-3.2/2.2-3.1 cm/m2 LVIDs: 2.84 2.0-3.6 cm LVPWd: 1.28 0.7-1.1 cm Ao Root: 3.00 2.1-3.5 cm LA Diam: 4.10 2.7-3.8/3.0-4.0 cm LAIDs Index: 2.12 1.5-2.3 cm/m2 LV Mass: 245.86 67-162/88-224 g LV Mass Index: 127.39 43-95/49-115 g/m2 LVOT Diam: 2.20 3.0+(-)1.3 cm 2D Systolic Function EF 4C: 42.00 >55% EF 2C: 47.70 >55% EF BiP: 44.50 >55% Mitral Valve MV Pk E: 0.84 MV Decel Time: 121.00 E'Lateral: 10.10 E'Medial: 8.59 E/E' Med: 9.70 E/E' Lat: 8.30 PHT: 36.00 MVA PHT: 6.11 Decel [place]: 6.88 Aortic Valve AoV Pk Alessandro: 1.09 AoV Mn Alessandro: 0.72 AoV VTI: 0.21 AoV Pk Grad: 5.00 Aov Mn Grad: 2.00 RICKIE Cont.VTI: 2.61 LVOT LVOT Pk Alessandro: 0.84 LVOT Mn Alessandro: 0.56 LVOT VTI: 0.15 LVOT Pk Grad: 3.00 LVOT Mn Grad: 1.00 LVOT Diam: 2.20 LVOT Area: 3.80 Diastolic Function MV Pk E: 0.84 E'Medial: 8.59 E/E' Med: 9.70 E' Laterial: 10.10 E/E' Lat: 8.30 Right Ventricle TAPSE (mm): 19.00 TVS' Alessandro: 12.00 Tricuspid Valve TR Pk Alessandro: 2.21 TR Pk Grad: 20.00 RA Press: 3.00 RVSP: 23.00 Great Vessels Aorta Ao Root-2D: 3.00 2.0-3.7 cm Ao Asc: 3.80 2.1-3.4 cm Pulmonary Valve PV Pk Alessandro: 0.69 Peak PV Grad: 2.00 Updated in Other Vendor System with Status of Final Brent Shipley MD electronically signed on 01/16/2025 11:20:42 AM with status of Final
--- NOTE | 2025-01-15 11:18 | HM_ITS ---
Conclusion: 1. Patient was monitored for total period of 3 days 2. Baseline was normal sinus rhythm with average heart rate of 104 beats per minute 3. No significant pauses noted with rare PACs noted with total burden of 0.02% 4. Frequent sinus tachycardia noted with 37.5% of the time heart rate about 100 beats per minute 5. No patient reported events MTDD
== END ==
LOC: HO.CARD 11:17
PROVIDERS: PCP Internal Medicine; Visit Provider Internal Medicine
DX: I10 Essential (primary) hypertension (principal); I48.91 Unspecified atrial fibrillation; E03.9 Hypothyroidism, unspecified; D50.9 Iron deficiency anemia, unspecified
CPT/HCPCS: 93242; 93306

== ENCOUNTER → 2025-01-15 11:18 | Outpatient (BNV) | payer OTHER, SELFPAY | PROVIDERS: PCP Internal Medicine; Visit Provider Internal Medicine | DX: I42.2 Other hypertrophic cardiomyopathy (principal); I34.0 Nonrheumatic mitral (valve) insufficiency; I36.1 Nonrheumatic tricuspid (valve) insufficiency | CPT/HCPCS: 93306 ==

== ENCOUNTER 2025-02-19 09:03 | Outpatient (REF) | payer OTHER, SELFPAY ==
[2025-02-19 10:15] LABS: Appearance Urine Clear; Glucose Urine UA Negative (Negative); PH 8.0 (5.0-9.0); Specific Gravity - Urine 1.015 (1.005-1.025); UMIC TRIGGER UA YES
[2025-02-19 11:15] LABS: Alanine Aminotransferase 14 U/L (0-31); Albumin Level 4.2 g/dL (3.5-5.0); Alkaline Phosphatase 70 U/L (39-117); Anion Gap 11 (12-20); Aspartate Amino Transferase 20 U/L (5-31); Blood Urea Nitrogen 15 mg/dL (9-16); Calcium 9.6 mg/dL (8.4-10.2); Carbon Dioxide 29 mmol/L (22-29); Chloride 102 mmol/L (96-108); Cholesterol 192 mg/dL (<200); Estimated Glomerular Filt Rate > 60; HDL Cholesterol 48 mg/dL (>40); Potassium 4.5 mmol/L (3.3-5.1); Sodium 137 mmol/L (135-145); Total Protein 7.8 g/dL (6.5-8.0); Triglycerides 159 mg/dL (<150)
== END 2025-02-19 09:04 | disposition home or self-care (01) ==
LOC: HO.HMGCLDS 09:03
PROVIDERS: PCP Internal Medicine; Visit Provider Internal Medicine
DX: I10 Essential (primary) hypertension (principal); I48.91 Unspecified atrial fibrillation; E03.9 Hypothyroidism, unspecified; R73.9 Hyperglycemia, unspecified
CPT/HCPCS: 36415; 80053; 80061; 81001; 82570; 83036; 84425; 84443

== ENCOUNTER 2025-02-22 09:30 | Outpatient (AMB) | payer OTHER, SELFPAY ==
--- NOTE | 2025-02-22 09:36 | MHC.PC.OV ---
Vital Signs 02/22/25 09:40 Height 5 ft 2 in Weight 232 lb BMI 42.4 BP 100/76 Blood Pressure Location Lt brachial Position Sitting Respiration 19 Pulse 96 Pulse Source Pulse Oximeter Temp 98.1 F Temp Source Oral Pulse Oximetry (%) 97 Oxygen Delivery Method Room Air Intake Visit Reasons: PE Intake Note: Pt is here today for PE. Allergies sertraline Allergy (Unknown, Verified 02/22/25 09:40) Itching Medication List - Last Reconciled 02/22/25 by Latonia Glaser MD apixaban (Eliquis) 5 mg PO BID cholecalciferol (vitamin D3) 50 mcg PO DAILY diltiazem HCl CD (Cartia XT) 120 mg PO DAILY estradiol 10 mcg vaginal 2XW furosemide (Lasix) 20 mg PO Q OTHER DAY levothyroxine 50 mcg PO DAILY magnesium oxide 400 mg PO DAILY metoprolol tartrate 25 mg PO BID potassium chloride ER 20 mEq PO DAILY Ventolin HFA 90 mcg/actuation (albuterol sulfate) 1 inh inhalation QID PRN NS vit B complex 100 combo no.2 ER (Balanced B-100 Complex) 1 tab PO .QD vitamin B complex 1 tab PO DAILY Tobacco use date assessed: 02/22/25 Dental Screening Dental Screen Date: 12/11/24 HPI PE HPI Details Patient presents for a physical. She complains of gaining weight but has not been physically active and has not change her caloric intake. [facility] Medical History (Updated 02/22/25 @ 10:41 by Latonia Glaser MD) Edema A-fib Hypokalemia ETOH abuse DJD (degenerative joint disease), lumbar Sleep apnea HTN (hypertension) Normal Pap smear Annual physical exam Hypomagnesemia Vitamin B 12 deficiency Pre-op exam Lower back pain Hypothyroidism DJD (degenerative joint disease) Tendinopathy Elevated LFTs Anxiety and depression Perimenopausal Surgical History No pertinent past surgical history H/O colonoscopy No pertinent past surgical history Family History Father No problems noted. Mother No problems noted. Father No problems noted. Mother No problems noted. Social History (Reviewed 02/22/25 @ 09:47 by MARIN Corrales Housing: House Alcohol intake: current Alcohol intake frequency: a few times a month Patient Tobacco Use Status: Never used Tobacco e-Cigarette/Vaping Use: Never Used service: No Current occupational status: unemployed Cognitive needs: No Hearing needs: No Vision needs: Yes Questionnaire PHQ-9 Over the last 2 weeks, how often have you been bothered by any of the following problems? 1. Little interest or pleasure in doing things: not at all 2. Feeling down, depressed, or hopeless: not at all 3. Trouble falling or staying asleep, or sleeping too much: not at all 4. Feeling tired or having little energy: not at all 5. Poor appetite or overeating: not at all 6. Feeling bad about yourself - or that you are a failure or have let yourself or your family down: not at all 7. Trouble concentrating on things, such as reading the newspaper or watching television: not at all 8. Moving or speaking so slowly that other people could have noticed. Or the opposite - being so fidgety or restless that you have been moving around a lot more than usual: not at all 9. Thoughts that you would be better off or of hurting yourself in some way: not at all Total score: 0 Depression Screening Interpretation: Negative Depression Screening Done: Yes Source: Developed by Drs. Leoncio Llamas, Candy Vargas, Rk Metcalf and colleagues, with an educational kwasi from [employer]. Thrive Questionnaire Date Thrive assessed: 11/18/24 AUDIT C Alcohol Use Questionnaire (AUDIT-C) 1. How often do you have a drink containing alcohol?: Monthly or less 2. How many drinks containing alcohol do you have on a typical day when you are drinking?: 1 or 2 3. How often do you have six or more drinks on one occasion?: Never Total Score: 1 NOA-7 AMB Questionnaire NOA-7 Date NOA - 7 assessed: 11/18/24 Feeling nervous, anxious, or on edge: 0 = Not at all Not being able to stop or control worryin = Not at all Worrying too much about different things: 0 = Not at all Trouble relaxin = Not at all Being so restless that it is hard to sit still: 0 = Not at all Becoming easily annoyed or irritable: 0 = Not at all Feeling afraid as if something awful might happen: 0 = Not at all Total NOA-7 score (0-4 normal; 5-9 mild; 10-14 moderate; 15-21 severe): 0 Source: Developed by Drs. Leoncio Llamas, Candy Vargas, Rk Metcalf and colleagues, with an educational kwasi from [employer]. Review of Systems Const All systems reviewed & are unremarkable except as noted in HPI and below Eyes Reports no additional complaints ENT Reports no additional complaints Card Reports no additional complaints Resp Reports no additional complaints GI Reports no additional complaints Reports no additional complaints Physical exam (Primary Care) Vital Signs: Last Vital Signs Temp 98.1 F 02/22/25 09:40 Pulse 96 02/22/25 09:40 Resp 19 02/22/25 09:40 BP 100/76 02/22/25 09:40 Pulse Ox 97 02/22/25 09:40 Oxygen Delivery Method Room Air 02/22/25 09:40 BMI result Body Mass Index 42.4 Tobacco/Smoking Status: Tobacco use Status Tobacco use date assessed 02/22/25 02/22/25 09:44 Patient Tobacco Use Status Never used Tobacco 02/22/25 09:44 e-Cigarette/Vaping Use Never Used 02/22/25 09:36 PHQ-9: PHQ-9 Score PHQ-9: Total score 0 02/22/25 09:44 Depression Screening Interpretation: Negative Thrive Assessment: Date of Thrive Assessment Date Thrive assessed 11/18/24 02/22/25 09:36 Const General: no acute distress HENMT Head: Yes normal to inspection Mouth: Normal oral and palatal mucosa present Throat: Yes posterior oropharynx normal Eyes General: appearance normal, both eyes and all related structures Neck Neck: Yes no lymphadenopathy and Yes supple Resp Effort & Inspection: normal respiratory effort Auscultation: clear to auscultation bilaterally Cardio Rate: tachycardic Rhythm: regular rhythm Heart sounds: S1 normal heart sound present and S2 normal heart sound present GI Inspection: Yes normal to inspection Palpation (GI): Soft to palpation Percussion: Yes normal to percussion Auscultation: normal bowel sounds Extrem General: Yes no clubbing, cyanosis or edema Coding Level of Care Code Est Pt Prev Care 40-64y(29939) Diagnoses Annual physical exam Z00.00 A-fib I48.91 Hypothyroidism E03.9 Obesity E66.9 Assessment & Plan Assessment & Plan (1) Annual physical exam: Code(s): Z00.00 - Encounter for general adult medical examination without abnormal findings Category: Medical Plan: Well-balanced diet regular physical activity weight loss discussed with the patient she is up-to-date with the mammogram and will call GI to schedule colonoscopy (2) A-fib: Comment: recurrent with RVR, ER [facility]:bedside cardiac ultrasound, normal heart activity no pericardial fluid, 11/18/2024 established with Cardiology at [facility], Holter 01/2025 sinus tachy, no A fib, Echo 12/2024 EF 45%, mild dilation of ascending aorta at 3.8 cm Code(s): I48.91 - Unspecified atrial fibrillation Category: Medical Plan: Continue current medications follow-up with Cardiology next week (3) Hypothyroidism: Code(s): E03.9 - Hypothyroidism, unspecified Category: Medical Plan: Continue levothyroxine (4) Obesity: Comment: BMI 42.4, 02/2025 Code(s): E66.9 - Obesity, unspecified Category: Medical Plan: Decreasing caloric intake increasing physical activity weight loss discussed with the patient. She is not interested in trying GLP 1 agonist Orders: Orders Complete Blood Count Auto Diff 3 Months D64.9 - Anemia, unspecified, E03.9 - Hypothyroidism, unspecified, E53.8 - Deficiency of other specified B group vitamins, E66.9 - Obesity, unspecified Lipid Panel 3 Months D64.9 - Anemia, unspecified, E03.9 - Hypothyroidism, unspecified, E53.8 - Deficiency of other specified B group vitamins, E66.9 - Obesity, unspecified UA w Microscopic 3 Months D64.9 - Anemia, unspecified, E03.9 - Hypothyroidism, unspecified, E53.8 - Deficiency of other specified B group vitamins, E66.9 - Obesity, unspecified Vitamin B12 and Folate 3 Months D64.9 - Anemia, unspecified, E03.9 - Hypothyroidism, unspecified, E53.8 - Deficiency of other specified B group vitamins, E66.9 - Obesity, unspecified Comprehensive [place]. Panel Fast 3 Months D64.9 - Anemia, unspecified, E03.9 - Hypothyroidism, unspecified, E53.8 - Deficiency of other specified B group vitamins, E66.9 - Obesity, unspecified TSH reflex Free T4 3 Months D64.9 - Anemia, unspecified, E03.9 - Hypothyroidism, unspecified, E53.8 - Deficiency of other specified B group vitamins, E66.9 - Obesity, unspecified Vitamin B1 3 Months D64.9 - Anemia, unspecified, E03.9 - Hypothyroidism, unspecified, E53.8 - Deficiency of other specified B group vitamins, E66.9 - Obesity, unspecified Referrals MANAGER CARDIAC Referral Z00.00 - Encounter for general adult medical examination without abnormal findings Medications: New vitamin B complex 1 tab PO DAILY 90 tabs 2RF Discontinued indomethacin ER Discontinued Reason: Doctor's Order 75 mg PO DAILY 20 caps 0RF
[2025-02-22 09:40] VITALS: BP 100/76; PULSE 96; RESP 19; TEMP 36.7; O2SAT 97; BMI 42.4
== END 2025-02-22 10:29 | disposition home or self-care (01) ==
LOC: HO.HMCC 09:31
PROVIDERS: PCP Internal Medicine; Visit Provider Internal Medicine
DX: Z00.00 Encounter for general adult medical examination without abnormal findings (principal); I48.91 Unspecified atrial fibrillation; E66.9 Obesity, unspecified; Z68.41 Body mass index [BMI] 40.0-44.9, adult; E03.9 Hypothyroidism, unspecified

== ENCOUNTER → 2025-02-22 09:30 | Outpatient (BNVA) | payer OTHER, SELFPAY | PROVIDERS: PCP Internal Medicine; Visit Provider Internal Medicine | DX: Z00.00 Encounter for general adult medical examination without abnormal findings (principal); I48.91 Unspecified atrial fibrillation; E03.9 Hypothyroidism, unspecified; E66.9 Obesity, unspecified; Z68.41 Body mass index [BMI] 40.0-44.9, adult | CPT/HCPCS: 99396 ==